=== PATIENT | male | born 1955 | race Two or more races ===

== ENCOUNTER 2025-02-12 11:07 | Inpatient (IN) | payer OTHER ==
[~2025-02-12] VITALS: Ht 172.7 cm; Wt 82.1 kg
[2025-02-12] VITALS (24 sets, daily range): BP systolic 88–155; BP diastolic 58–99; PULSE 67–132; RESP 16–39; TEMP 98–98.6; O2SAT 90–99
--- NOTE | 2025-02-12 11:47 | DVH ---
EXAM: XY CHEST PORTABLE Indication: chest pain Technique: Single frontal view of the chest was obtained Comparison: XR CHEST 1 VIEW on DOS: 02/12/25, XR CHEST 1 VIEW on DOS: 09/05/24, XR CHEST 1 VIEW on DOS: 08/21/24, CTA CHEST on DOS: 07/10/21, XR CHEST 1 VIEW on DOS: 07/09/21 FINDINGS: Lines and Tubes: Cardiac pacemaker projects over left chest wall. Lungs: Pulmonary vascular congestion. Pleura: No effusion. No pneumothorax. Cardiomediastinal contours: Unremarkable Bones: No acute osseous abnormality. IMPRESSION: Pulmonary vascular congestion.
--- NOTE | 2025-02-12 11:51 | ED.PDOC ---
HPI Comments This is a 70 year old male ELIESER presenting to the ED with chief complaint of chest pain and elevated troponin. EMS reports patient is coming from [facility] due to having chest pain and elevated troponin. EMS relays patient's chest pain has since improved to a 1/10 after being given Plavix and Nitroglycerin in the hospital. Patient denies any SOB, headache, N/V, dizziness, or abdominal pain. Chief Complaint: Chest Pain Time Seen by MD: 11:09 Allergies: Coded Allergies: NO KNOWN ALLERGIES (Unverified , 02/12/25) Mode of Arrival: EMS Past Medical History PAST MEDICAL HISTORY: MO Surgical History: Pacemaker, PTCA Surgical History (Other): G-Tube Family History Family History: Reviewed,noncontributory to illness Social History Smoker: Non-Smoker Alcohol: Denies ETOH Use Drugs: Denies Drug Use Constitutional: denies: chills, diaphoresis, fatigue, fever, malaise, sweats, weakness, others EENTM: denies: blurred vision, double vision, ear bleeding, ear discharge, ear drainage, ear pain, ear ringing, eye pain, eye redness, hearing loss, mouth pain, mouth swelling, nasal discharge, nose bleeding, nose congestion, nose pain, photophobia, tearing, throat pain, throat swelling, voice changes, others Respiratory: denies: cough, hemoptysis, orthopnea, SOB at rest, shortness of breath, SOB with excertion, stridor, wheezing, others Cardiovascular: reports: chest pain; denies: dizzy spells, diaphoresis, Dyspnea on exertion, edema, irregular heart beat, left arm pain, lightheadedness, palpitations, PND, syncope, others Gastrointestinal: denies: abdomen distended, abdominal pain, blood streaked bowels, constipated, diarrhea, dysphagia, difficulty swallowing, hematemesis, melena, nausea, poor appetite, poor fluid intake, rectal bleeding, rectal pain, vomiting, others Genitourinary: denies: burning, dysuria, flank pain, frequency, hematuria, incontinence, penile discharge, penile sore, pain, testicle pain, testicle swelling, urgency, others Neurological: denies: dizziness, fainting, headache, left sided numbness, left sided weakness, numbness, paresthesia, pre-existing deficit, right sided numbness, right sided weakness, seizure, speech problems, tingling, tremors, we akness, others Musculoskeletal: denies: back pain, gout, joint pain, joint swelling, muscle pain, muscle stiffness, neck pain, others Integumetry: denies: bruises, change in color, change in hair/nails, dryness, laceration, lesions, lumps, rash, wounds, others Allergic/Immunocompromised: denies: Difficulty Healing, Frequent Infections, Hives, Itching, others Hematologic/Lymphatic: denies: anemia, blood clots, easy bleeding, easy bruising, swollen glands, others Endocrine: denies: excessive hunger, excessive sweating, excessive thirst, excessive urination, flushing, intolerance to cold, intolerance to heat, unexplained weight gain, unexplained weight loss, others Psychiatric: denies: anxiety, bipolar disorder, depression, hopeless, panic disorder, schizophrenia, sleepless, suicidal, others All Other Systems: Reviewed and Negative Physical Exam General Appearance: No Apparent Distress, Normal HEENT: Normal ENT Inspection, Pharynx Normal, TMs Normal Neck: Full Range of Motion, Non-Tender, Normal, Normal Inspection Respiratory: Chest Non-Tender, Lungs Clear, No Accessory Muscle Use, No Respiratory Distress, Normal Breath Sounds Cardiovascular: No Edema, No JVD, No Murmur, No Gallop, Normal Peripheral Pulses, Regular Rate/Rhythm Breast Exam: Deferred Gastrointestinal: No Organomegaly, Non Tender, No Pulsatile Mass, Normal Bowel Sounds, Soft, Other (G-Tube in place) Genitalia: Deferred Pelvic: Deferred Rectal: Deferred Extremities: No calf tenderness, Normal capillary refill, Normal inspection, Normal range of motion, Non-tender, No pedal edema Musculoskeletal : Apperance: Normal Neurologic: Alert, faculty head II-XII nml as Tested, No Motor Deficits, Normal Affect, Normal Mood, No Sensory Deficits Cerebellar Function: Normal Reflexes: Normal Skin: Dry, Normal Color, Warm Lymphatic: No Adenopathy Was a procedure done? Was a procedure done?: No CP Differential Dx Differential Diagnosis: MAT, MO Differential Diagnosis: CHF, HTN Essential, HTN Accelerated Differential Diagnosis: Cholelithiasis, Gastritis, Myocardial Infarction, Pericarditis, Pneumonia X-Ray, Labs, Meds, VS Vital Signs Date Time Temp Pulse Resp B/P (MAP) Pulse Ox O2 Delivery O2 Flow Rate FiO2 02/12/25 15:14 19 100 Nasal Cannula* 2 28 02/12/25 15:00 87 19 109/64 (79) 100 02/12/25 13:00 85 17 107/58 (74) 97 02/12/25 12:07 94 02/12/25 11:30 92 29 115/65 (82) 97 02/12/25 11:30 67 17 99 Room Air* 0 21 02/12/25 11:10 98.0 102 20 108/64 95 98.0 Lab Test 02/12/25 13:10 02/12/25 11:35 Range/Units Troponin I High Sensitivity 3074 *H 716 *H </=54 ng/L White Blood Count 10.4 4.4-10.8 10^3/uL Red Blood Count 4.06 L 4.5-5.90 10^6/uL Hemoglobin 12.2 L 13.5-17.5 g/dL Hematocrit 37.6 L 41.0-53.0 % Mean Corpuscular Volume 92.6 80.0-100.0 fL Mean Corpuscular Hemoglobin 29.9 28.0-32.0 pg Mean Corpuscular Hemoglobin Concent 32.3 32.0-36.0 g/dL Red Cell Distribution Width 16.6 H 11.8-14.3 % Platelet Count 449 140-450 10^3/uL Mean Platelet Volume 7.1 6.9-10.8 fL Neutrophils (%) (Auto) 84.8 H 37.0-80.0 % Lymphocytes (%) (Auto) 8.1 L 10.0-50.0 % Monocytes (%) (Auto) 5.9 0.0-12.0 % Eosinophils (%) (Auto) 0.5 0.0-7.0 % Basophils (%) (Auto) 0.7 0.0-2.0 % Neutrophils # (Auto) 8.8 H 1.6-8.6 10 ^3/uL Lymphocytes # (Auto) 0.8 0.4-5.4 10 ^3/uL Monocytes # (Auto) 0.6 0-1.3 10 ^3/uL Eosinophils # (Auto) 0 0-0.8 10 ^3/uL Basophils # (Auto) 0.1 0-0.2 10 ^3/uL Nucleated Red Blood Cells 0.1 % Sodium Level 141 136-145 mmol/L Potassium Level 3.8 3.5-5.1 mmol/L Chloride Level 109 H 98-107 mmol/L Carbon Dioxide Level 17 L 20-31 mmol/L Anion Gap 15 5-15 Blood Urea Nitrogen 10 9-23 mg/dL Creatinine 0.99 0.700-1.30 mg/dL Glomerular Filtration Rate Calc 81 >90 mL/min BUN/Creatinine Ratio 10.1 10.0-20.0 Serum Glucose 212 H 74-106 mg/dL Calcium Level 8.5 L 8.7-10.4 mg/dL Time of 1ST Reevaluation: 12:50 Reevaluation 1ST: Unchanged Patient Education/Counseling: Diagnosis, Treatment Family Education/Counseling: No Family Present SEPSIS Sepsis Screen Date sepsis recognized/suspect: Feb 12, 2025 Time Sepsis recognized/suspect: 1113 Recent Procedure: No On Antibiotic Therapy: No Respiratory Rate >20: No Heart Rate >90: Yes Temp<36 C (96.8 F) or >38.3 C: No SBP <90 or MAP <65 mmHG: No New Acute Mental Status Change: No Is the patient on CPAP, BIPAP,: No Physician Orders Chest Portable (02/12/25 11:14) Electrocardigram (02/12/25 11:14) Troponin-I Hs (02/12/25 14:14) Electrocardigram (02/12/25 12:14) Electrocardigram (02/12/25 14:14) Vital Signs Date Time Temp Pulse Resp B/P (MAP) Pulse Ox O2 Delivery O2 Flow Rate FiO2 02/12/25 15:14 19 100 Nasal Cannula* 2 28 02/12/25 15:00 87 19 109/64 (79) 100 02/12/25 13:00 85 17 107/58 (74) 97 02/12/25 12:07 94 02/12/25 11:30 92 29 115/65 (82) 97 02/12/25 11:30 67 17 99 Room Air* 0 21 02/12/25 11:10 98.0 102 20 108/64 95 98.0 Laboratory Tests Test 02/12/25 11:35 White Blood Count 10.4 10^3/uL (4.4-10.8) Departure 1 Departure Time of Disposition: 15:37 (Patient presented with chest pain that was concerning for possible STEMI, ACS, PE, Pneumonia, Muscle Strain, COPD, Dissection. Data: 1. I ordered and reviewed the result of at least 3 labs including a CBC, BMP, and Troponin. 2. I independently interpreted the following tests: EKG which shows sinus arrhythmia and Chest X-ray which shows benign chest _.Risk:This patient has a high risk of morbidity due to further diagnostic testing or treatment and may suffer from an acute cardiac or respiratory disorder. Workup reveals NSTEMI and patient should be admitted for further workup and possible expert consultation. ) Impression: Primary Impression: NSTEMI (non-ST elevated myocardial infarction) Additional Impression: Acute chest pain Disposition: ADMITTED INPATIENT Admit to: Tele Condition: Guarded Critical Care Note Critical Care Time?: Yes Critical care comment: Acute chest pain Authorized and Performed by: Patty Petersen MD Total critical care time: Approximately 39 minutes Due to a high probability of clinically significant, life threatening deterioration, the patient required my highest level of preparedness to intervene emergently and I personally spent this critical care time directly and personally managing the patient. This critical care time included obtaining a history; examining the patient; pulse oximetry; ordering and review of studies; arranging urgent treatment with development of a management plan; evaluation of patient's response to treatment; frequent reassessment; and, discussions with other providers. This critical care time was performed to assess and manage the high probability of imminent, life-threatening deterioration that could result in multi-organ failure. It was exclusive of separately billable procedures and treating other patients and teaching time. Please see my other sections and the rest of the note for further information on patient assessment and treatment. Stability Stability form required: No Heart Score Heart Score: Heart Score Response (Comments) Value History Highly Suspicious 2 EKG Normal 0 Age >65 2 Risk Factors >3 or Hx ASHD 2 Troponin >3 x's Normal limit 2 Total 8 I personally scribed for PATTY PETERSEN MD ([email or web address]) on 02/12/25 at 11:51. Electronically submitted by Roshan Woodward ([email or web address]). PATTY PETERSEN MD Feb 12, 2025 11:51
[2025-02-12 12:13] LABS: Hematocrit 37.6 % (41.0-53.0); Hemoglobin 12.2 g/dL (13.5-17.5); Mean Corpuscular Hemoglobin 29.9 pg (28.0-32.0); Mean Corpuscular Volume 92.6 fL (80.0-100.0); Nucleated Red Blood Cells % 0.1 %
[2025-02-12 12:19] LABS: Anion Gap 15 (5-15); Potassium 3.8 mmol/L (3.5-5.1); Sodium 141 mmol/L (136-145)
[2025-02-12 12:20] LABS: Carbon Dioxide 17 mmol/L (20-31); Chloride 109 mmol/L (98-107)
[2025-02-12 12:21] LABS: Calcium 8.5 mg/dL (8.7-10.4)
[2025-02-12 12:25] LABS: BUN/Creatinine Ratio 10.1 (10.0-20.0); Blood Urea Nitrogen 10 mg/dL (9-23)
[2025-02-12 12:29] LABS: Glucose 212 mg/dL (74-106)
[2025-02-12] MEDS ORDERED: NITROGLYCERIN 0.4 MG SL TAB SL PRN (16:15)
[2025-02-12] MEDS ORDERED: DEXTROSE (50%) 50ML SYRG IV PRN (16:30)
[2025-02-12] MEDS ORDERED: MORPHINE SULFATE 4 MG/ML SYR/VIAL IV PRN (16:30)
[2025-02-12] MEDS ORDERED: ONDANSETRON HCL 4 MG/2 ML VIAL IV PRN (16:30)
[2025-02-12 16:38] LABS: INR 1.0 (0.9-1.15); Partial Thromboplastin Time 25.7 SEC (24.5-34.5); Prothrombin Time 10.6 sec (9.3-11.8)
[2025-02-12] MEDS: HEPARIN SODIUM (PORCINE) 5000 UNITS/ML 1ML VIAL IV ONE (16:50)
[2025-02-12] MEDS: HEPARIN DRIP/D5W 100UNITS/ML 250 ML IV SCH (16:55)
[2025-02-12] MEDS: InsuLIN REG 1unit/0.01ml Soln (100units/ml) SC SCH (17:00)
[2025-02-12] MEDS: ACCU-CHEK COMFORT CURVE STRIP VI SCH (17:26)
[2025-02-12] MEDS: HEPARIN IN NS 1000Units/500mL 1,500 ML ONE (17:33)
[2025-02-12] MEDS: IODIXANOL 320MG/ML 100ML BTL IV ONE (17:33)
[2025-02-12] MEDS: ANGIOMAX 250 MG VIAL IV ONE (17:35)
[2025-02-12] MEDS: VERAPAMIL 2.5MG/ML INJ 2ML VIAL IV ONE (17:35)
[2025-02-12] MEDS: MIDAZOLAM HCL 2MG/2ML 2ml VIAL (1mg/ml) ONE (17:35)
[2025-02-12] MEDS: LIDOCAINE 2%HCL (LOCAL ANESTH.) INJ 20ML MDV ONE (17:35)
[2025-02-12] MEDS: fentaNYL CITRATE 100 MCG/2 ML VL ONE (17:35)
[2025-02-12] MEDS: SODIUM CHL 0.9% 50 ML ONE (17:35)
[2025-02-12] MEDS: HEPARIN SODIUM (PORCINE) 5000 UNITS/ML 1ML VIAL ONE (17:35)
--- NOTE | 2025-02-12 18:02 | DVHHP2 ---
History of Present Illness Reason for Visit: Chest pain History of Present Illness 70-year-old male presents for evaluation of chest pain. Patient reports a one day history of substernal pressure-like nonradiating chest pain with associated shortness for breath. Patient initially presented to outside facility for evaluation and was transferred for higher level of care and cardiology consultation. Patient currently rates the pain at 5/10 intensity. Denies nausea or vomiting. No diaphoresis. Past Medical History Thyroid disease, hypertension, diabetes mellitus, mi Past Surgical History PTCA, pacemaker Family History Noncontributory Smoke: No ALCOHOL: none Drugs: None Lives: with Family Review of Systems Review of Systems Review of systems are currently negative otherwise addressed in HPI. Allergies: Coded Allergies: NO KNOWN ALLERGIES (Unverified , 02/12/25) Medications Current Medications Medications Dose Ordered Sig/Nelson Route Start Time Stop Time Status Last Admin Dose Admin Heparin Sodium/ Dextrose 250 ml @ 10 mls/hr Q24H IV 02/12/25 16:46 02/12/25 16:55 10 MLS/HR Nitroglycerin 0.4 mg Q5MINP PRN SL 02/12/25 16:15 Morphine Sulfate 2 mg Q30M PRN IV 02/12/25 16:30 Carvedilol 3.125 mg Q12HR PO 02/12/25 22:00 Atorvastatin Calcium 40 mg HS PO 02/12/25 22:00 Clopidogrel Bisulfate 75 mg DAILY PO 02/13/25 10:00 Levothyroxine Sodium 25 mcg QAM@0600 PO 02/13/25 06:00 Diagnostic Test (Pha) 1 strip ACHS 02/12/25 17:00 02/12/25 17:26 1 STRIP Insulin Human Regular ACHS SC 02/12/25 17:00 Dextrose 50 ml UD PRN IV 02/12/25 16:30 Ondansetron HCl 4 mg Q4HP PRN IV 02/12/25 16:30 Exam Vital Signs Vital Signs Date Time Temp Pulse Resp B/P (MAP) Pulse Ox O2 Delivery O2 Flow Rate FiO2 02/12/25 17:47 89 19 99/58 (72) 98 02/12/25 15:14 Nasal Cannula* 2 28 02/12/25 11:10 98.0 98.0 Exam Gen: 70-year-old male in mild distress. Skin: Warm, dry, normal color and texture, no rash. HEENT: Normocephalic atraumatic, mucous membranes moist and pink. Neck: Cervical and supraclavicular nodes normal without enlargement, trachea is midline, thyroid gland is normal without masses. Pulmonary: Clear to auscultation and percussion bilaterally. Cardiac: Regular rate and rhythm. No murmur Abdomen: Soft, nontender, nondistended, bowel sounds present all 4 quadrants, no guarding, no rigidity, no organomegaly. Extremities: No cyanosis, clubbing, no edema Neuro: Cranial nerves II through XII grossly intact, normal affect and speech, no focal motor deficits. Labs/Xrays ORDERING PHYSICIAN: PATTY MACK MD PROCEDURE(s): CXRP - CHEST PORTABLE REASON: chest pain ORDER NUMBER(s): [id number], ACCESSION NUMBER(s): [id number] EXAM: XY CHEST PORTABLE Indication: chest pain Technique: Single frontal view of the chest was obtained Comparison: XR CHEST 1 VIEW on DOS: 02/12/25, XR CHEST 1 VIEW on DOS: 09/05/24, XR CHEST 1 VIEW on DOS: 08/21/24, CTA CHEST on DOS: 07/10/21, XR CHEST 1 VIEW on DOS: 07/09/21 FINDINGS: Lines and Tubes: Cardiac pacemaker projects over left chest wall. Lungs: Pulmonary vascular congestion. Pleura: No effusion. No pneumothorax. Cardiomediastinal contours: Unremarkable Bones: No acute osseous abnormality. IMPRESSION: Pulmonary vascular congestion. Labs Test 02/12/25 17:24 02/12/25 16:14 02/12/25 11:35 Range/Units POC Glucose 229 H 70-106 mg/dl Prothrombin Time 10.6 9.3-11.8 sec Prothrombin Time INR 1.00 0.9-1.15 Activated Partial Thromboplast Time 25.7 24.5-34.5 SEC Troponin I High Sensitivity 9394 *H </=54 ng/L White Blood Count 10.4 4.4-10.8 10^3/uL Red Blood Count 4.06 L 4.5-5.90 10^6/uL Hemoglobin 12.2 L 13.5-17.5 g/dL Hematocrit 37.6 L 41.0-53.0 % Mean Corpuscular Volume 92.6 80.0-100.0 fL Mean Corpuscular Hemoglobin 29.9 28.0-32.0 pg Mean Corpuscular Hemoglobin Concent 32.3 32.0-36.0 g/dL Red Cell Distribution Width 16.6 H 11.8-14.3 % Platelet Count 449 140-450 10^3/uL Mean Platelet Volume 7.1 6.9-10.8 fL Neutrophils (%) (Auto) 84.8 H 37.0-80.0 % Lymphocytes (%) (Auto) 8.1 L 10.0-50.0 % Monocytes (%) (Auto) 5.9 0.0-12.0 % Eosinophils (%) (Auto) 0.5 0.0-7.0 % Basophils (%) (Auto) 0.7 0.0-2.0 % Neutrophils # (Auto) 8.8 H 1.6-8.6 10 ^3/uL Lymphocytes # (Auto) 0.8 0.4-5.4 10 ^3/uL Monocytes # (Auto) 0.6 0-1.3 10 ^3/uL Eosinophils # (Auto) 0 0-0.8 10 ^3/uL Basophils # (Auto) 0.1 0-0.2 10 ^3/uL Nucleated Red Blood Cells 0.1 % Sodium Level 141 136-145 mmol/L Potassium Level 3.8 3.5-5.1 mmol/L Chloride Level 109 H 98-107 mmol/L Carbon Dioxide Level 17 L 20-31 mmol/L Anion Gap 15 5-15 Blood Urea Nitrogen 10 9-23 mg/dL Creatinine 0.99 0.700-1.30 mg/dL Glomerular Filtration Rate Calc 81 >90 mL/min BUN/Creatinine Ratio 10.1 10.0-20.0 Serum Glucose 212 H 74-106 mg/dL Calcium Level 8.5 L 8.7-10.4 mg/dL SEPSIS Sepsis Screen Date sepsis recognized/suspect: Feb 12, 2025 Time Sepsis recognized/suspect: 1129 Recent Procedure: No On Antibiotic Therapy: No Respiratory Rate >20: No Heart Rate >90: No Temp<36 C (96.8 F) or >38.3 C: No SBP <90 or MAP <65 mmHG: No New Acute Mental Status Change: No Is the patient on CPAP, BIPAP,: No Physician Orders Chest Portable (02/12/25 11:14) Electrocardigram (02/12/25 11:14) Electrocardigram (02/12/25 12:14) Electrocardigram (02/12/25 14:14) * Cardiology Consult (02/12/25 15:38) Platelet Monitoring (02/12/25 15:38) Heparin Per Standardized Proce (02/12/25 15:38) Discontinue All Im Injections (02/12/25 15:38) Heparin Drip/D5w 100units/Ml (02/12/25 16:46) Stat Ekg For Chest Pain (02/12/25 15:38) Admit (02/12/25 16:12) Nitroglycerin Sublingual (Ntrostat Subli (02/12/25 16:15) Notify Md Of Changes From Base (02/12/25 16:12) Microarray Specialist For 24 Hours (02/12/25 16:12) Emergency Dysrhythmia Protocol (02/12/25 16:12) Rhythm Strips Once Every Shift (02/12/25 16:12) Oxygen By Nasal Cannula (02/12/25 16:12) Morphine Sulfate Injection (02/12/25 16:30) Carvedilol Tablet (Coreg Tablet) (02/12/25 22:00) Atorvastatin (Lipitor) (02/12/25 22:00) Clopidogrel Bisulfate (Plavix) (02/13/25 10:00) Levothyroxine Tablet (Synthroid Tablet) (02/13/25 06:00) Basic Metabolic Panel (02/13/25 04:00) Npo After Midnight (02/12/25 16:16) Glucose Blood (Accu-Chek Comfort Curve T (02/12/25 17:00) Insulin R (Human) (Insulin R) (02/12/25 17:00) Dextrose 50% Syringe (02/12/25 16:30) Ondansetron Hcl (Zofran) (02/12/25 16:30) Condition: Fair (02/12/25 16:16) Bedrest With Bathroom Privileg (02/12/25 16:16) Npo (Nothing By Mouth) Diet (02/12/25 Dinner) Cl Left Heart Cath (02/12/25 17:26) Obtain Consent For: (02/12/25 17:45) Shave Both Groins (02/12/25 17:45) Provide Education Materials (02/12/25 17:45) Obtain Consent For Anesthesia (02/12/25 17:45) Thyroid Stimulating Hormone (02/12/25 17:50) Lipid Panel (02/12/25 17:50) Hemoglobin A1c (02/12/25 17:50) Magnesium (02/12/25 17:50) Vital Signs Date Time Temp Pulse Resp B/P (MAP) Pulse Ox O2 Delivery O2 Flow Rate FiO2 02/12/25 17:47 89 19 99/58 (72) 98 02/12/25 15:14 19 100 Nasal Cannula* 2 28 02/12/25 15:00 87 19 109/64 (79) 100 02/12/25 13:00 85 17 107/58 (74) 97 02/12/25 12:07 94 02/12/25 11:30 92 29 115/65 (82) 97 02/12/25 11:30 67 17 99 Room Air* 0 21 02/12/25 11:10 98.0 102 20 108/64 95 98.0 Laboratory Tests Test 02/12/25 11:35 White Blood Count 10.4 10^3/uL (4.4-10.8) Medications Medications Dose Ordered Sig/Nelson Route Start Time Stop Time Status Last Admin Dose Admin Diagnostic Test (Pha) 1 strip ACHS 02/12/25 17:00 02/12/25 17:26 1 STRIP Heparin Sodium (Porcine) 4,000 units ONCE ONCE IV 02/12/25 15:45 02/12/25 15:46 DC 02/12/25 16:50 4,000 UNITS Heparin Sodium/ Dextrose 250 ml @ 10 mls/hr Q24H IV 02/12/25 16:46 02/12/25 16:55 10 MLS/HR Assessment/Plan Assessment/Plan Assessment NSTEMI Diabetes mellitus Hypertension Status post pacemaker Status post PTCA Plan Admit the patient to telemetry to the hospitalist Continue heparin drip ACS protocol NPO Continue treatment per orders Plan discussed with: Patient My Orders Orders - MASOUD CABRERA Procedure Category Date Status Time Admit ADMIT 02/12/25 Transmitted 16:12 Nitroglycerin PHA 02/12/25 In Process Sublingual (Ntrostat 16:15 Notify Md Of Changes [facility] 02/12/25 In Process From Base 16:12 Microarray Specialist For [facility] 02/12/25 In Process 24 Hours 16:12 Emergency Dysrhythmia [facility] 02/12/25 In Process Protocol 16:12 Rhythm Strips Once [facility] 02/12/25 In Process Every Shift 16:12 Oxygen By Nasal RT 02/12/25 Transmitted Cannula 16:12 Morphine Sulfate [facility] 02/12/25 In Process Injection 16:30 Carvedilol Tablet [facility] 02/12/25 In Process (Coreg Tablet) 22:00 Atorvastatin (Lipitor) [facility] 02/12/25 In Process 22:00 Clopidogrel Bisulfate [facility] 02/13/25 In Process (Plavix) 10:00 Levothyroxine Tablet [facility] 02/13/25 In Process (Synthroid Tablet) 06:00 Basic Metabolic Panel LAB 02/13/25 Verified 04:00 Npo After Midnight [facility] 02/12/25 In Process 16:16 Glucose Blood [facility] 02/12/25 In Process (Accu-Chek Comfort 17:00 Insulin R (Human) [facility] 02/12/25 In Process (Insulin R) 17:00 Dextrose 50% Syringe [facility] 02/12/25 In Process 16:30 Ondansetron Hcl [facility] 02/12/25 In Process (Zofran) 16:30 Condition: Fair [facility] 02/12/25 In Process 16:16 Bedrest With Bathroom [facility] 02/12/25 In Process Privileg 16:16 Npo (Nothing By DIET 02/12/25 Transmitted Mouth) Diet Dinner Date of Service: Feb 12, 2025 Billing Provider: MASOUD CABRERA Common Visit Codes: [id number] INP/OBS CARE (HIGH) MASOUD CABRERA Feb 12, 2025 18:02
--- NOTE | 2025-02-12 18:03 | DVHINCON2 ---
Date Seen: Feb 12, 2025 Referring Physician MD Trinity Reason for Consultation NSTEMI History of Present Illness This is a 70-year-old male patient who presents to emergency room with chief complaint of shortness of breath and chest pain. The patient was initially seen at [facility] but was transferred to this facility for higher level of care given elevated troponin level. The patient reports that the chest pain began on the day of emergency room arrival. He describes the chest pain as unprovoked, constant, pressure-like in nature, substernal and nonradiating. Associated symptoms include shortness of breath. He denies any aggravating or alleviating factors. Initial twelve lead electrocardiogram done at this facility reveals sinus tachycardia with nonspecific ST segment changes to lateral leads and anterior Q-waves. Initial troponin level of 716ng/L with significant up trend and current peak level of 9394ng/L. The patient had already been given loading dose of aspirin at [facility]. The patient was given a heparin bolus followed by heparin drip per ACS protocol in the emergency room at this facility. Significant past medical history includes coronary artery disease status post multiple PTCAs with 5 FANY (on Plavix and aspirin), myocardial infarction, congestive heart failure, presence of AICD (Regen), hypertension, dyslipidemia, COPD, type 2 diabetes mellitus, thyroid disease, tobacco use and morbid obesity. The patient is not the greatest historian. He mentions recent coronary angiogram with stent placement approximately three weeks ago at [facility]. He reports compliance to his dual antiplatelet therapy. He denies following up with a structural engineering project manager in the outpatient setting. Past Medical History Past medical history reviewed. No other significant than mentioned above. Past Surgical History Left peg tube in place Left knee tendon repair Family History Family history reviewed. Social History Patient has a 25 pack-year history, smokes approximately half a pack per day Denies illicit drug use Denies alcohol use Allergies: Coded Allergies: NO KNOWN ALLERGIES (Unverified , 02/12/25) Home Meds Home medications reviewed. Current Medications Current Medications Medications (Trade) Dose Ordered Sig/Nelson Route PRN Reason Start Time Stop Time Status Last Admin Heparin Sodium/ Dextrose 250 ml @ 10 mls/hr Q24H IV 02/12/25 16:46 02/12/25 16:55 Nitroglycerin (Ntrostat Sublingual) 0.4 mg Q5MINP PRN SL FOR CHEST PAIN 10/9/25 16:15 Morphine Sulfate 2 mg Q30M PRN IV FOR CHEST PAIN 02/12/25 16:30 Carvedilol (Coreg Tablet) 3.125 mg Q12HR PO 02/12/25 22:00 Atorvastatin Calcium (Lipitor) 40 mg HS PO 02/12/25 22:00 Clopidogrel Bisulfate (Plavix) 75 mg DAILY PO 02/13/25 10:00 Levothyroxine Sodium (Synthroid Tablet) 25 mcg QAM@0600 PO 02/13/25 06:00 Diagnostic Test (Pha) (Accu-Chek Comfort Curve T) 1 strip ACHS 02/12/25 17:00 02/12/25 17:26 Insulin Human Regular (InsuLIN R) ACHS SC 02/12/25 17:00 Dextrose 50 ml UD PRN IV Blood Sugar LESS THAN 60 02/12/25 16:30 Ondansetron HCl (Zofran) 4 mg Q4HP PRN IV NAUSEA / VOMITING 02/12/25 16:30 Review of Systems Constitutional: No symptom reported Ears, Nose, & Throat: No symptom reported Eyes: No symptom reported Neurological: No symptoms reported Pulmonary/Respiratory: Shortness of breath Cardiovascular: Chest pain Gastrointestinal: No symptom reported Genitourinary: No symptom reported Musculoskeletal: No symptom reported Skin: No symptom reported Psychiatric: No symptom reported Endocrine: No symptom reported Hematologic/Lymphatic: No symptom reported Vital Signs Vital Signs Date Time Temp Pulse Resp B/P (MAP) Pulse Ox O2 Delivery O2 Flow Rate FiO2 02/12/25 15:14 19 100 Nasal Cannula* 2 28 02/12/25 15:00 87 109/64 (79) 02/12/25 11:10 98.0 98.0 Physical Exam General Appearance: Cooperative. Morbid obesity Pulmonary/Respiratory: Clear, bilateral breaths sounds. Cardiovascular/Chest: Regular rate and rhythm. Peripheral Pulses: 2+ Radial (R). 2+ Radial (L). 2+ Pedal (R). 2+ Pedal (L) Abdominal Exam: Normal bowel sounds. Left upper quadrant PEG tube in place Ankle Exam: Negative ankle edema Lower extremities: Negative lower extremity edema Neuro/Mental Status: A/OX4, coherent. Thoughts/Psych: Normal thought pattern. Appropriate mood and affect. Good judgment and insight. Appearance: No acute distress. Skin Exam: Normal inspection. Normal color. Warm and dry. Labs/Diagnostic Data Labs Test 02/12/25 17:24 02/12/25 16:14 02/12/25 11:35 Range/Units POC Glucose 229 H 70-106 mg/dl Prothrombin Time 10.6 9.3-11.8 sec Prothrombin Time INR 1.00 0.9-1.15 Activated Partial Thromboplast Time 25.7 24.5-34.5 SEC Troponin I High Sensitivity 9394 *H </=54 ng/L White Blood Count 10.4 4.4-10.8 10^3/uL Red Blood Count 4.06 L 4.5-5.90 10^6/uL Hemoglobin 12.2 L 13.5-17.5 g/dL Hematocrit 37.6 L 41.0-53.0 % Mean Corpuscular Volume 92.6 80.0-100.0 fL Mean Corpuscular Hemoglobin 29.9 28.0-32.0 pg Mean Corpuscular Hemoglobin Concent 32.3 32.0-36.0 g/dL Red Cell Distribution Width 16.6 H 11.8-14.3 % Platelet Count 449 140-450 10^3/uL Mean Platelet Volume 7.1 6.9-10.8 fL Neutrophils (%) (Auto) 84.8 H 37.0-80.0 % Lymphocytes (%) (Auto) 8.1 L 10.0-50.0 % Monocytes (%) (Auto) 5.9 0.0-12.0 % Eosinophils (%) (Auto) 0.5 0.0-7.0 % Basophils (%) (Auto) 0.7 0.0-2.0 % Neutrophils # (Auto) 8.8 H 1.6-8.6 10 ^3/uL Lymphocytes # (Auto) 0.8 0.4-5.4 10 ^3/uL Monocytes # (Auto) 0.6 0-1.3 10 ^3/uL Eosinophils # (Auto) 0 0-0.8 10 ^3/uL Basophils # (Auto) 0.1 0-0.2 10 ^3/uL Nucleated Red Blood Cells 0.1 % Sodium Level 141 136-145 mmol/L Potassium Level 3.8 3.5-5.1 mmol/L Chloride Level 109 H 98-107 mmol/L Carbon Dioxide Level 17 L 20-31 mmol/L Anion Gap 15 5-15 Blood Urea Nitrogen 10 9-23 mg/dL Creatinine 0.99 0.700-1.30 mg/dL Glomerular Filtration Rate Calc 81 >90 mL/min BUN/Creatinine Ratio 10.1 10.0-20.0 Serum Glucose 212 H 74-106 mg/dL Calcium Level 8.5 L 8.7-10.4 mg/dL Assessment NSTEMI, rule out InStent restenosis/thrombosis Coronary artery disease status post multiple PTCAs x5 FANY (on Plavix and aspirin) Chronic HFrEF, NYHA class III Presence of AICD (Regen) History myocardial infarction Hypertension Dyslipidemia COPD Type 2 diabetes mellitus Thyroid disease Tobacco use Morbid obesity Plan/Recommendation We will continue following plan/recommendations (Dr. Fleming): Case discussed with . We will proceed with obtaining a transthoracic echocardiogram to evaluate cardiac function. Given patient's clinical presentation, significant up-trending troponin level, and recent coronary stent placement, we will recommend for the patient to undergo a coronary angiogram with left heart catheterization. The procedure was discussed with the patient in full detail including risks and benefits. Risks include but are not limited to bleeding, contrast-induced nephropathy, coronary dissection, stroke, and even . The patient understands and is agreeable to undergo the procedure. We will schedule the patient at soonest availability on 02/12/2025. Thank you for allowing us to care for this patient. Please call with any questions or concerns. Critical care time spent: 44 minutes This medical document was created using an electronic medical record system with voice recognition software and computerized dictation system. Although this document has been carefully reviewed, there might still be some phonetic and typographical errors. Occasional wrong-word or ``sound-alike substitutions may have occurred due to the inherent limitations of voice recognition software. These areas are purely typographical due to imperfections of the software programs and do not reflect any compromise in the patient's medical care. Ple ase read the chart carefully and recognize, using context, where these substitutions have occurred. Plan discussed with: Patient NYHA Physical activity limitations: Class3(Marked) ordinary (activity causes symtoms) Date of Service: Feb 12, 2025 Billing Provider: EMILY EASTMAN Cardiology Common Codes: 21339-TOMHFAN INP/OBS CARE (High) Cardiology Consultation Codes: 28361-[id number] CONSULT <45MIN EMILY EASTMAN [facility] Feb 12, 2025 18:03
[2025-02-12 18:35] LABS: Triglycerides 136.0 mg/dL (< 150)
[2025-02-12 18:36] LABS: Magnesium 2.2 mg/dL (1.6-2.6)
[2025-02-12 18:37] LABS: Cholesterol 181.0 mg/dL (< 200); HDL Cholesterol 47.0 mg/dL (40-59)
[2025-02-12] MEDS: TICAGRELOR 90 MG TAB ONE (19:07)
--- NOTE | 2025-02-12 19:12 | ECG ---
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
--- NOTE | 2025-02-12 19:12 | ECG ---
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
--- NOTE | 2025-02-12 19:13 | ECG ---
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
--- NOTE | 2025-02-12 19:24 | DVHOP2 ---
Operative Report - 2 Report Details Date: 02/12/25 Preop Diagnosis: CAD/acute coronary syndrome Postop Diagnosis: Acute coronary syndrome Surgeon: Jessica Fleming MD Anesthesiologist: Conscious sedation Anesthesia: Mac, Local Consent: The patient was informed of the risks and benefits of the procedure. These include but are not limited to complications of anesthesia, postoperative infection, incomplete relief of symptoms, recurrence of symptoms, damage to blood vessels, nerves and tendons, deep venous thrombosis, pulmonary embolism and possible need for repeat surgery in the future. Complications: No complications Findings: Circumflex occlusion. Lad occlusion. Thrombus in mid RCA Indications for Surgery: Acute coronary syndrome/chest pain Name of Procedure Performed Left heart catheterization bilateral cine coronary angiography. Left ventriculography. PTCA and attempted aperture recently occluded circumflex was unsuccessful Procedure Details Procedure Details: Under the pretense of performing a salvage procedure for patient, Prior local anesthesia with 2% lidocaine to the right groin and full informed consent obtained patient was prepped and draped in the usual fashion a six Bulgarian sheath placed into the femoral artery. The radial artery was initially attempted however an ultrasound revealed a complete occlusion of the right radial artery. Patency of the ulnar artery. A three five EBU was used to perform ventriculography and cannulation of both r ight and left coronary ostia without complications. Hemodynamics: Aortic blood pressure was 90/50. End-diastolic pressure was 20. No gradient across the valve on pullback. Coronary anatomy: The RCA is a large vessel. It has a filling defect at its medial aspect in the midportion. There was slight contrast hang up. There is AIDAN grade 2-3 flow to the distal posterolateral branches PDA. There was a lesion in the posterolateral branch of about 70-80% stenosis. PDA has a 60-70% stenosis of the ostium. No collateralization is noted to the distal circumflex or left coronary system. Left main is a medium vessel it is large and it has been stented. The left anterior descending is occluded proximally. The circumflex itself has a been stented throughout its entirety. It is occluded at its mid section. Ventriculography in the RUEDA projection shows anterior akinesis. EF of about 10%. Notably enlarged LV. Angioplasty was attempted. Via the three five EBU a Specter wire was used followed by a Fielder wire in an effort to attempt crossing through the occlusion of the distal and mid circumflex. After several attempts and placing a 2-0 balloon into the mid circumflex were unable to pass a wire and/or balloon. The procedure was terminated. No complications. An Angio-Seal device was used to close the artery. Impression: Occluded LAD. Occluded circumflex. Filling defect in mid RCA. Severe dilated ischemic cardiomyopathy. Elevated left ventricular end-diastolic pressures Recommendations: It is extremely high-risk to consider angioplasty on the RCA without hemodynamic support/Impella. Poor overall prognosis. Propensity for thrombosis within the RCA is high given patient is still smoking and acute coronary syndrome in place. We will continue with anticoagulation. Poor overall prognosis. We will discuss with patient and family. Condition Poor Disposition Still a Patient Date of Service: Feb 12, 2025 Billing Provider: JESSICA FLEMING Sr., MD Cardiology Common Codes: 58747-[id number] INP/OBS CARE (High) Cardiology Procedure Codes: 70793-SAAD ADD CORONARY BRANCH (PTCA and thrombectomy of circumflex.), 92655-HWVU HEART CATH W/INTRA INJ JESSICA FLEMING Sr., MD Feb 12, 2025 19:24
[2025-02-12] MEDS ORDERED: ENOXAPARIN SOD 100 MG/1 ML SYRINGE SC ONE (21:22)
[2025-02-12] MEDS: ALBUTEROL SULF 2.5 MG/0.5ML(0.5%) NEB SOLN NEB PRN (21:50)
[2025-02-12] MEDS: ALBUTEROL SULF 2.5 MG/0.5ML(0.5%) NEB SOLN ONE (21:54)
[2025-02-12] MEDS: CARVEDILOL 3.125 MG TAB PO SCH (22:00)
[2025-02-12] MEDS ORDERED: ZOLPIDEM TARTRATE 5 MG TAB PO PRN (22:15)
[2025-02-12] MEDS: ZOLPIDEM TARTRATE 5 MG TAB PO PRN (22:22)
[2025-02-12] MEDS: FUROSEMIDE 40 MG/4 ML VIAL IV ONE (22:22)
[2025-02-12] MEDS: ATORVASTATIN 20 MG TAB PO SCH (22:59)
[2025-02-13] VITALS (99 sets, daily range): BP systolic 83–125; BP diastolic 44–76; PULSE 78–107; RESP 12–28; TEMP 97.9–99; O2SAT 92–100
[2025-02-13 00:11] LABS: INR 1.03 (0.9-1.15); Partial Thromboplastin Time 21.7 SEC (24.5-34.5); Prothrombin Time 10.9 sec (9.3-11.8)
[2025-02-13 03:53] LABS: Hematocrit 41.7 % (41.0-53.0); Hemoglobin 13.3 g/dL (13.5-17.5); Mean Corpuscular Hemoglobin 29.8 pg (28.0-32.0); Mean Corpuscular Volume 93.5 fL (80.0-100.0); Nucleated Red Blood Cells % 0.1 %
[2025-02-13 03:59] LABS: Potassium 3.8 mmol/L (3.5-5.1); Sodium 142 mmol/L (136-145)
[2025-02-13 04:00] LABS: Anion Gap 14 (5-15); Calcium 8.9 mg/dL (8.7-10.4); Carbon Dioxide 21 mmol/L (20-31)
[2025-02-13 04:05] LABS: BUN/Creatinine Ratio 9.1 (10.0-20.0); Blood Urea Nitrogen 10 mg/dL (9-23)
[2025-02-13 04:24] LABS: Chloride 107 mmol/L (98-107); Glucose 241 mg/dL (74-106)
[2025-02-13] MEDS: LEVOTHYROXINE SODIUM 25 MCG TAB PO SCH (05:47)
[2025-02-13 09:11] LABS: Hemoglobin 12.5 g/dL (13.5-17.5); Nucleated Red Blood Cells % 0.0 %
[2025-02-13 09:13] LABS: Hematocrit 38.2 % (41.0-53.0); Mean Corpuscular Hemoglobin 29.6 pg (28.0-32.0); Mean Corpuscular Volume 90.6 fL (80.0-100.0)
[2025-02-13 09:29] LABS: INR 1.0 (0.9-1.15); Partial Thromboplastin Time 25.6 SEC (24.5-34.5); Prothrombin Time 10.6 sec (9.3-11.8)
[2025-02-13] MEDS ORDERED: CLOPIDOGREL BISULFATE 75 MG TAB PO SCH (10:00)
--- NOTE | 2025-02-13 11:55 | DVHPN2 ---
Consult Progress Note Subjective Other Systems: Patient in normal sinus rhythm at time of assessment Objective vital signs Vital Sign Date Time Temp Pulse Resp B/P (MAP) Pulse Ox O2 Delivery O2 Flow Rate FiO2 02/13/25 10:15 84 16 103/65 (78) 100 02/13/25 08:00 99.0 99.0 02/13/25 08:00 Simple Mask* 7 60 Total Intake and Output 02/12/25 02/12/25 02/13/25 15:00 23:00 07:00 Intake Total 240 ml Output Total 1400 ml Balance -1160 ml medications Current Medications Medications Dose Ordered Sig/Nelson Route Start Time Stop Time Status Last Admin Dose Admin Heparin Sodium/ Dextrose 250 ml @ 10 mls/hr Q24H IV 02/12/25 16:46 02/12/25 16:55 10 MLS/HR Nitroglycerin 0.4 mg Q5MINP PRN SL 02/12/25 16:15 Morphine Sulfate 2 mg Q30M PRN IV 02/12/25 16:30 Carvedilol 3.125 mg Q12HR PO 02/12/25 22:00 Atorvastatin Calcium 40 mg HS PO 02/12/25 22:00 02/12/25 22:59 40 MG Clopidogrel Bisulfate 75 mg DAILY PO 02/13/25 10:00 Levothyroxine Sodium 25 mcg QAM@0600 PO 02/13/25 06:00 02/13/25 05:47 25 MCG Diagnostic Test (Pha) 1 strip ACHS 02/12/25 17:00 02/13/25 11:41 1 STRIP Insulin Human Regular ACHS SC 02/12/25 17:00 02/13/25 06:40 3 UNITS Dextrose 50 ml UD PRN IV 02/12/25 16:30 Ondansetron HCl 4 mg Q4HP PRN IV 02/12/25 16:30 Enoxaparin Sodium 90 mg BID SC 02/13/25 10:00 Hold Albuterol 2.5 mg Q4HPRN PRN NEB 02/12/25 21:45 02/12/25 21:50 2.5 MG Zolpidem Tartrate 10 mg HSPRN PRN PO 02/12/25 22:15 02/12/25 22:22 10 MG Examination: GENERAL:Normal, LUNGS:Normal, CVS:Normal, NEURO:Normal laboratory and microbiology Laboratory Tests 02/13/25 08:56 02/13/25 02:56 Test 02/13/25 02:56 Range/Units Serum Glucose 241 H 74-106 mg/dL Problem List/Assessment/Plan Problem List/Assessment/Plan NSTEMI Mid RCA thrombus Coronary artery disease status post multiple PTCAs x5 FANY (on Plavix and aspirin) Chronic HFrEF, NYHA class III Presence of AICD ([employer]) History myocardial infarction Hypertension Dyslipidemia COPD Pulmonary hypertension, severe degree Type 2 diabetes mellitus Thyroid disease Tobacco use Morbid obesity Plan/Recommendations (Dr. Fleming): Case discussed with . The patient underwent a transthoracic echocardiogram which revealed an EF of 10%, RVSP 75-80 mmHg. Initiate full guideline directed medical therapy with optimal blood pressures. Strict intake and output, daily weights, maintain fluid restriction, maintain low-sodium diet. The patient underwent a coronary angiogram with left heart catheterization on 02/12/2025 which revealed an occluded LAD, an occluded circumflex and filling defects in the mid RCA with thrombus. Given this high risk to consider angioplasty on the RCA without hemodynamic support or Impella, the patient's overall prognosis is poor. Recommendations for single antiplatelet therapy (switched to Brilinta per ) and with DOAC therapy (Eliquis). The patient should also continue lipid-lowering agent (statin therapy). Initiate colchicine. Continue with close cardiac surveillance. Thank you for allowing us to care for this patient. Please call with any questions or concerns. Critical care time spent: 38 minutes. This medical document was created using an electronic medical record system with voice recognition software and computerized dictation system. Although this document has been carefully reviewed, there might still be some phonetic and typographical errors. Occasional wrong-word or ``sound-alike substitutions may have occurred due to the inherent limitations of voice recognition software. These areas are purely typographical due to imperfections of the software programs and do not reflect any compromise in the patient's medical care. Please read the chart carefully and recognize, using context, where these substitutions have occurred. Plan discussed with: Patient Date of Service: Feb 13, 2025 Billing Provider: EMILY EASTMAN Common Visit Codes: 39438-WPCFIGUZ CARE 30-74 MIN EMILY EASTMAN Feb 13, 2025 11:55
[2025-02-13] MEDS: TICAGRELOR 90 MG TAB PO ONE (13:56)
[2025-02-13] MEDS: hydrOXYzine 25 MG TAB or CAP PO ONE (15:26)
--- NOTE | 2025-02-13 17:14 | DVHSR ---
APPROVED REPORT EXAM: Two-dimensional and M-mode echocardiogram with Doppler and color Doppler. Blood Pressure: 109/64 mmHg INDICATION Chest Pain RISK FACTORS Height: 68, Weight: 200 DIMENSIONS LVDd7.2 (3.8-5.7cm)LA (2D) (1.9-4.0cm)Aortic Root3.3 (2.0-3.7cm) LVDs6.4 (2.5-4.0cm)LA (MM) (1.9-4.0cm)Aortic Cusp Exc1.1 (1.5-2.0cm) EF (%) 25.0 (55-70%)Rt. Atrium (1.9-4.0cm)Asc. Aorta cm Mitral Valve MitralMitral Stenosis E wave1.28m/sMV Mean GR.mmHg A wavem/sMV Peak GR.55mmHg E/A ratio0.02D MVAcm2 Aortic Valve Aortic ValveAortic Stenosis V10.48m/Tanika Mean GR.2mmHg V20.88m/Tanika Peak GR.3mmHg LVOT Diameter2.2 (1.8-2.4cm)Doppler AVA2.07cm2 Pulmonic Valve V20.82m/s Tricuspid Valve TR Velocity4.13m/s [id number] Other Information Technically limited study due to body habitus, patient position and patient moving during the entire study. Conclusion Technically good study. Undetermined rhythm. Left ventricular enlargement. Left atrial enlargement. Valves appear to be structurally normal. Left ventricular function is markedly diminished. EF is approximately 10% with severe global hypokin esis. Right ventricular function is diminished. Severe pulmonary hypertension with a right ventricular systolic pressure of 75-80 mmHg. Moderate MR. No pericardial effusion masses or vegetations.
--- NOTE | 2025-02-13 20:19 | DVHPN2 ---
Assessment/Plan Assessment/Plan progress note 70 M transferred from OSH for elevated troponin. 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 physical exam aox3, poor historian on oxymask b/l crackles s1 s2 rrr abdomen soft no LE edema labs ekg imaging reviewed assessment and plan NSTEMI CAD s/p FANY x5 on asa Plavix mid RCA thrombus HFrEF 10% acute on chronic systolic HF s/p AICD HTN HLD COPD group E acute on chronic hypoxic RF severe pHTN IDDM smoker morbid obesity cardio recc appreciated medical mgmt for CAD s/p LHC, occluded LAD, LCx and mid RCA thrombus Eliquis and brilinta steroid and nebs ISS resume home meds maintain spo2 >92 diet cardiac dvt ppx AC poor prognosis full code crit care time 45 minutes Plan discussed with: Patient My Orders Orders - SYDNEY BOYKIN MD Procedure Category Date Status Time Hydroxyzine Oral PHA 02/13/25 In Process (Vistaril Oral) 16:15 Comprehensive LAB 02/14/25 Verified Metabolic Panel 04:00 Magnesium LAB 02/14/25 Verified 04:00 Phosphorus LAB 02/14/25 Verified 04:00 Date of Service: Feb 13, 2025 Billing Provider: SYDNEY BOYKIN MD Common Visit Codes: 65775-[id number] CARE 30-74 MIN SYDNEY BOYKIN MD Feb 13, 2025 20:19
[2025-02-13] MEDS: TICAGRELOR 90 MG TAB PO SCH (23:18)
[2025-02-13] MEDS: ENOXAPARIN SOD 100 MG/1 ML SYRINGE SC SCH (23:22)
[2025-02-14] VITALS (67 sets, daily range): BP systolic 79–117; BP diastolic 46–72; PULSE 69–100; RESP 10–26; TEMP 97.5–98.3; O2SAT 84–100
[2025-02-14 03:31] LABS: Hematocrit 37.7 % (41.0-53.0); Hemoglobin 12.5 g/dL (13.5-17.5); Mean Corpuscular Hemoglobin 30.3 pg (28.0-32.0); Mean Corpuscular Volume 91.5 fL (80.0-100.0); Nucleated Red Blood Cells % 0.1 %
[2025-02-14 03:54] LABS: Alanine Aminotransferase 29 U/L (7-40); Albumin 3.9 g/dL (3.2-4.8); Alkaline Phosphatase 66 U/L (46-116); Anion Gap 12 (5-15); BUN/Creatinine Ratio 13.0 (10.0-20.0); Blood Urea Nitrogen 12 mg/dL (9-23); Calcium 9.0 mg/dL (8.7-10.4); Carbon Dioxide 22 mmol/L (20-31); Glucose 104 mg/dL (74-106); Magnesium 2.2 mg/dL (1.6-2.6); Sodium 142 mmol/L (136-145); Total Protein 6.6 g/dL (5.7-8.2)
[2025-02-14 03:55] LABS: Bilirubin, Total 1.0 mg/dL (0.2-1.0)
[2025-02-14 03:57] LABS: Chloride 108 mmol/L (98-107); Potassium 3.4 mmol/L (3.5-5.1)
[2025-02-14] MEDS: POTASSIUM CHL 20 Meq TABLET PO ONE (06:21)
[2025-02-14] MEDS: COLCHICINE 0.6 MG CAP PO SCH (10:59)
[2025-02-14] MEDS: EMPAGLIFLOZIN 10 MG TAB PO SCH (11:01)
--- NOTE | 2025-02-14 15:50 | DVHPN2 ---
Subjective No cardiac events reported Denies chest pain or shortness of breath Changes from previous H/P or p: No Changes Objective Vitals Vital Signs Date Time Temp Pulse Resp B/P (MAP) Pulse Ox O2 Delivery O2 Flow Rate FiO2 02/14/25 14:00 87 02/14/25 13:30 17 92/59 (70) 97 02/14/25 12:00 Nasal Cannula* 2 N/A Simple Mask* 02/14/25 11:30 97.7 97.7 Intake/Output Intake and Output 02/14/25 07:00 Intake Total 810 ml Output Total 850 ml Balance -40 ml Intake Oral 810 ml Output Urine Total 850 ml Medications Current Medications Medications Dose Ordered Sig/Nelson Route Start Time Stop Time Status Last Admin Dose Admin Nitroglycerin 0.4 mg Q5MINP PRN SL 02/12/25 16:15 Morphine Sulfate 2 mg Q30M PRN IV 02/12/25 16:30 Carvedilol 3.125 mg Q12HR PO 02/12/25 22:00 02/14/25 11:01 3.125 MG Atorvastatin Calcium 40 mg HS PO 02/12/25 22:00 02/13/25 23:17 40 MG Levothyroxine Sodium 25 mcg QAM@0600 PO 02/13/25 06:00 02/14/25 06:21 25 MCG Diagnostic Test (Pha) 1 strip ACHS 02/12/25 17:00 02/14/25 11:01 1 STRIP Insulin Human Regular ACHS SC 02/12/25 17:00 02/14/25 13:12 3 UNITS Dextrose 50 ml UD PRN IV 02/12/25 16:30 Ondansetron HCl 4 mg Q4HP PRN IV 02/12/25 16:30 Enoxaparin Sodium 90 mg BID SC 02/13/25 10:00 02/14/25 13:10 90 MG Albuterol 2.5 mg Q4HPRN PRN NEB 02/12/25 21:45 02/14/25 06:38 2.5 MG Zolpidem Tartrate 10 mg HSPRN PRN PO 02/12/25 22:15 02/12/25 22:22 10 MG Ticagrelor 90 mg BID PO 02/13/25 22:00 02/14/25 10:59 90 MG Hydroxyzine HCl 10 mg Q6HP PRN PO 02/13/25 16:15 Colchicine 0.6 mg DAILY PO 02/14/25 10:00 02/14/25 10:59 0.6 MG Empaglifozin 10 mg DAILY PO 02/14/25 10:00 02/14/25 11:01 10 MG Laboratory Results Laboratory Tests 02/14/25 02:40 Chemistry Test 02/14/25 02:40 Albumin 3.9 g/dL (3.2-4.8) Calcium Level 9.0 mg/dL (8.7-10.4) Magnesium Level 2.2 mg/dL (1.6-2.6) Phosphorus Level 2.8 mg/dL (2.4-5.1) Total Protein 6.6 g/dL (5.7-8.2) LFT Test 02/14/25 02:40 Alanine Aminotransferase (ALT) 29 U/L (7-40) Alkaline Phosphatase 66 U/L (46-116) Aspartate Amino Transferase (AST) 42 U/L (13-40) H Total Bilirubin 1.0 mg/dL (0.2-1.0) Microbiology Microbiology Date/Time Source Procedure Growth Status 02/12/25 20:38 Nose MRSA Screen - Final Complete Assessment/Plan Assessment/Plan NSTEMI Mid RCA thrombus Coronary artery disease status post multiple PTCAs x5 FANY (on Plavix and aspirin) Chronic HFrEF, NYHA class III Presence of AICD (Kovio) History myocardial infarction Hypertension Dyslipidemia COPD Pulmonary hypertension, severe degree Type 2 diabetes mellitus Thyroid disease Tobacco use Morbid obesity Plan/Recommendations (Dr. Fleming): 02/14/25 - switch Coreg to metoprolol tartrate 12.5 days given soft BP. Continue with Brilinta, Eliquis, and statins. Check Chest x-ray to evaluate pulmonary congestion, check BNP to evaluate volume status. Strict intake and output, daily weight Case discussed with . The patient underwent a transthoracic echocardiogram which revealed an EF of 10%, RVSP 75-80 mmHg. Initiate full guideline directed medical therapy with optimal blood pressures. Strict intake and output, daily weights, maintain fluid restriction, maintain low-sodium diet. The patient underwent a coronary angiogram with left heart catheterization on 02/12/2025 which revealed an occluded LAD, an occluded circumflex and filling defects in the mid RCA with thrombus. Given this high risk to consider angioplasty on the RCA without hemodynamic support or Impella, the patient's overall prognosis is poor. Recommendations for single antiplatelet therapy (switched to Brilinta per ) and with DOAC therapy (Eliquis). The patient should also continue lipid-lowering agent (statin therapy). Initiate colchicine. Continue with close cardiac surveillance. Thank you for allowing us to care for this patient. Please call with any questions or concerns. Critical care time spent: 38 minutes. This medical document was created using an electronic medical record system with voice recognition software and computerized dictation system. Although this document has been carefully reviewed, there might still be some phonetic and typographical errors. Occasional wrong-word or ``sound-alike substitutions may have occurred due to the inherent limitations of voice recognition software. These areas are purely typographical due to imperfections of the software programs and do not reflect any compromise in the patient's medical care. Please read the chart carefully and recognize, using context, where these substitutions have occurred. Plan discussed with: Patient Plan discussed with: Patient, Other (RN) Date of Service: Feb 14, 2025 Billing Provider: JESSICA FLEMING Sr., MD Common Visit Codes: CONSULT ONLY Consultation Codes: [id number] CONSULT <45MIN RAVI PEÑA Feb 14, 2025 15:50
--- NOTE | 2025-02-14 16:22 | DVH ---
EXAM: XY CHEST PORTABLE CLINICAL HISTORY: sob TECHNIQUE: Single AP view of the chest WID: COMPARISON: XY CHEST PORTABLE on DOS: 02/12/25 FINDINGS: Lines and tubes: There is a single lead left-sided AICD Chest: The heart size and pulmonary vasculature is within normal limits. Mild bibasilar linear and mixed opacities. No pleural effusion or pneumothorax. The osseous structures are grossly intact. IMPRESSION: 1. Mild bibasilar linear and mixed opacities which could reflect atelectasis, scarring, or pneumonia.
--- NOTE | 2025-02-14 17:45 | DVHPN2 ---
Assessment/Plan Assessment/Plan progress note 70 M transferred from OSH for elevated troponin. 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 titrate down as able. swith coreg to metop succ. OOBTC physical exam aox3, poor historian on oxymask b/l crackles s1 s2 rrr abdomen soft no LE edema labs ekg imaging reviewed assessment and plan NSTEMI CAD s/p FANY x5 on asa Plavix mid RCA thrombus HFrEF 10% acute on chronic systolic HF s/p AICD HTN HLD COPD group E acute on chronic hypoxic RF severe pHTN IDDM smoker morbid obesity cardio recc appreciated medical mgmt for CAD s/p LHC, occluded LAD, LCx and mid RCA thrombus Eliquis and brilinta steroid and nebs ISS resume home meds maintain spo2 >92 diet cardiac dvt ppx AC poor prognosis full code crit care time 45 minutes Plan discussed with: Patient My Orders Orders - SYDNEY BOYKIN MD Procedure Category Date Status Time Metoprolol Xl PHA 02/15/25 Verified Succinate (Toprol Xl) 10:00 Date of Service: Feb 14, 2025 Billing Provider: SYDNEY BOYKIN MD Common Visit Codes: [id number] CARE 30-74 MIN SYDNEY BOYKIN MD Feb 14, 2025 17:45
[2025-02-14] MEDS: FUROSEMIDE 40 MG/4 ML VIAL IV ONE (17:55)
[2025-02-14] MEDS: APIXABAN 5 MG TAB PO SCH (23:11)
[2025-02-15] VITALS (23 sets, daily range): BP systolic 91–107; BP diastolic 53–68; PULSE 74–89; RESP 13–24; TEMP 97.7–98.1; O2SAT 93–100
[2025-02-15 04:01] LABS: Chloride 106 mmol/L (98-107); Sodium 142 mmol/L (136-145)
[2025-02-15 04:02] LABS: Anion Gap 13 (5-15); Carbon Dioxide 23 mmol/L (20-31); Hematocrit 34.1 % (41.0-53.0); Hemoglobin 11.5 g/dL (13.5-17.5); Mean Corpuscular Hemoglobin 30.2 pg (28.0-32.0); Mean Corpuscular Volume 89.5 fL (80.0-100.0); Nucleated Red Blood Cells % 0.1 %
[2025-02-15 04:03] LABS: Calcium 9.0 mg/dL (8.7-10.4)
[2025-02-15 04:07] LABS: BUN/Creatinine Ratio 16.2 (10.0-20.0); Blood Urea Nitrogen 16 mg/dL (9-23); Glucose 94 mg/dL (74-106)
[2025-02-15 05:05] LABS: Potassium 3.2 mmol/L (3.5-5.1)
--- NOTE | 2025-02-15 05:41 | DVH ---
EXAM: XY CHEST PORTABLE HISTORY: CONGESTION COMPARISON: XY CHEST PORTABLE on DOS: 02/14/25, XY CHEST PORTABLE on DOS: 02/12/25, XR CHEST 1 VIEW on DOS: 02/12/25, XR CHEST 1 VIEW on DOS: 09/05/24, XR CHEST 1 VIEW on DOS: 08/21/24 TECHNIQUE: Portable AP view of the chest was performed. FINDINGS: Left chest AICD is re-identified. There is central interstitial prominence, slightly increased since the previous day. No pneumothorax or consolidative infiltrates. The heart is borderline enlarged. IMPRESSION: Increased interstitial prominence suggestive of worsening CHF.
[2025-02-15] MEDS: POTASSIUM CHL 20 Meq TABLET PO ONE (06:13)
[2025-02-15] MEDS: METOPROLOL SUCCINATE XL 50 MG TAB PO SCH (09:10)
[2025-02-15] MEDS ORDERED: METOPROLOL TARTRATE 25 MG TAB PO SCH (10:00)
[2025-02-15] MEDS: clonazePAM 0.5 MG TAB PO SCH (11:02)
--- NOTE | 2025-02-15 18:40 | DVHPN2 ---
Assessment/Plan Assessment/Plan progress note 70 M transferred from OSH for elevated troponin. 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 transfer tele. dispo planning physical exam aox3, poor historian on oxymask b/l crackles s1 s2 rrr abdomen soft no LE edema labs ekg imaging reviewed assessment and plan NSTEMI CAD s/p FANY x5 on asa Plavix mid RCA thrombus HFrEF 10% acute on chronic systolic HF s/p AICD HTN HLD COPD group E acute on chronic hypoxic RF severe pHTN IDDM smoker morbid obesity cardio recc appreciated medical mgmt for CAD s/p LHC, occluded LAD, LCx and mid RCA thrombus Eliquis and brilinta steroid and nebs ISS resume home meds maintain spo2 >92 diet cardiac dvt ppx AC poor prognosis full code crit care time 35 minutes Plan discussed with: Patient My Orders Orders - SYDNEY BOYKIN MD Procedure Category Date Status Time Clonazepam Tablet PHA 02/15/25 In Process (Klonopin Tablet) 11:00 Transfer Orders XFER 02/15/25 Transmitted 16:54 Date of Service: Feb 15, 2025 Billing Provider: SYDNEY BOYKIN MD Common Visit Codes: [id number] CARE 30-74 MIN SYDNEY BOYKIN MD Feb 15, 2025 18:40
[2025-02-16] VITALS (8 sets, daily range): BP systolic 100–119; BP diastolic 56–79; PULSE 78–83; RESP 18–20; TEMP 98.1–98.5; O2SAT 93–99
[2025-02-16] MEDS: hydrOXYzine HCL 10 MG TAB PO PRN (04:38)
[2025-02-16 06:05] LABS: Chloride 105 mmol/L (98-107); Potassium 4.1 mmol/L (3.5-5.1); Sodium 139 mmol/L (136-145)
[2025-02-16 06:06] LABS: Anion Gap 13 (5-15); Calcium 9.0 mg/dL (8.7-10.4); Carbon Dioxide 21 mmol/L (20-31)
[2025-02-16 06:11] LABS: BUN/Creatinine Ratio 14.1 (10.0-20.0); Blood Urea Nitrogen 14 mg/dL (9-23)
[2025-02-16 06:22] LABS: Glucose 113 mg/dL (74-106)
--- NOTE | 2025-02-16 18:48 | DVHDS2 ---
Discharge Summary Date of Admission Feb 12, 2025 at 16:12 Date of Discharge: Feb 16, 2025 Labs/Diagnostic Data: Laboratory Results Test 02/16/25 10:46 02/16/25 04:54 02/15/25 03:04 02/14/25 02:40 POC Glucose 156 mg/dl (70-106) Sodium Level 139 mmol/L (136-145) Potassium Level 4.1 mmol/L (3.5-5.1) Chloride Level 105 mmol/L (98-107) Carbon Dioxide Level 21 mmol/L (20-31) Anion Gap 13 (5-15) Blood Urea Nitrogen 14 mg/dL (9-23) Creatinine 0.99 mg/dL (0.700-1.30) Glomerular Filtration Rate Calc 81 mL/min (>90) BUN/Creatinine Ratio 14.1 (10.0-20.0) Serum Glucose 113 mg/dL (74-106) Calcium Level 9.0 mg/dL (8.7-10.4) White Blood Count 8.3 10^3/uL (4.4-10.8) Red Blood Count 3.81 10^6/uL (4.5-5.90) Hemoglobin 11.5 g/dL (13.5-17.5) Hematocrit 34.1 % (41.0-53.0) Mean Corpuscular Volume 89.5 fL (80.0-100.0) Mean Corpuscular Hemoglobin 30.2 pg (28.0-32.0) Mean Corpuscular Hemoglobin Concent 33.8 g/dL (32.0-36.0) Red Cell Distribution Width 16.5 % (11.8-14.3) Platelet Count 338 10^3/uL (140-450) Mean Platelet Volume 7.1 fL (6.9-10.8) Neutrophils (%) (Auto) 73.2 % (37.0-80.0) Lymphocytes (%) (Auto) 12.5 % (10.0-50.0) Monocytes (%) (Auto) 10.4 % (0.0-12.0) Eosinophils (%) (Auto) 3.2 % (0.0-7.0) Basophils (%) (Auto) 0.7 % (0.0-2.0) Neutrophils # (Auto) 6.0 10 ^3/uL (1.6-8.6) Lymphocytes # (Auto) 1.0 10 ^3/uL (0.4-5.4) Monocytes # (Auto) 0.9 10 ^3/uL (0-1.3) Eosinophils # (Auto) 0.3 10 ^3/uL (0-0.8) Basophils # (Auto) 0.1 10 ^3/uL (0-0.2) Nucleated Red Blood Cells 0.1 % Phosphorus Level 2.8 mg/dL (2.4-5.1) Magnesium Level 2.2 mg/dL (1.6-2.6) Total Bilirubin 1.0 mg/dL (0.2-1.0) Aspartate Amino Transferase (AST) 42 U/L (13-40) Alanine Aminotransferase (ALT) 29 U/L (7-40) Alkaline Phosphatase 66 U/L (46-116) B-Type Natriuretic Peptide 442.51 pg/mL (0-100) Total Protein 6.6 g/dL (5.7-8.2) Albumin 3.9 g/dL (3.2-4.8) Test 02/13/25 08:56 02/12/25 16:14 02/12/25 11:35 Prothrombin Time 10.6 sec (9.3-11.8) Prothrombin Time INR 1.00 (0.9-1.15) Activated Partial Thromboplast Time 25.6 SEC (24.5-34.5) Troponin I High Sensitivity 9394 ng/L (</=54) Hemoglobin A1c 7.4 % A1C (<5.7) Triglycerides Level 136 mg/dL (< 150) Cholesterol Level 181 mg/dL (< 200) LDL Cholesterol 123 mg/dL (< 100) HDL Cholesterol 47 mg/dL (40-59) Thyroid Stimulating Hormone (TSH) 1.39 uIU/mL (0.55-4.78) Other Laboratory Tests 02/16/25 04:54 02/15/25 03:04 Brief Hx & Hospital Course: 70 M transferred from OSH for elevated troponin. 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 s/p LHC, occluded LAD, LCx and mid RCA thrombus, per cardio to be treated with eliquis and brilinta. titrated off o2, transfered to telemetry. patient today left against medical advise. did not take antiplatelets and anticoag whih is possibly why his stents closed. Condition at Discharge: Poor Final Diagnosis/Problems List NSTEMI CAD s/p FANY x5 on asa Plavix mid RCA thrombus HFrEF 10% acute on chronic systolic HF s/p AICD HTN HLD COPD group E acute on chronic hypoxic RF severe pHTN IDDM smoker morbid obesity Discharge Disposition: AMA Discharge Statement: "Patient was advised to return to the ER or call 911 if any headaches, dizziness, shortness of breath, chest pain, abdominal pain, bleeding, fevers, or worsening of medical condition. Patient was counseled about treatment plan, medications, possible side effects, patientverbalized understanding. All questions were answered to the best of my ability. This discharge took greater then 30 minutes in planning, reviewing documentation, counseling the patient, and discussing with other team members." ASSESSMENT ASSESSMENT Assessment Acute coronary syndrome Date of Service: Feb 16, 2025 Billing Provider: SYDNEY BOYKIN MD Common Visit Codes: [id number] DISCH DAY >30min SYDNEY BOYKIN MD Feb 16, 2025 18:48
--- NOTE | 2025-02-19 09:05 | ECG ---
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
== END 2025-02-16 12:46 | disposition left against medical advice (07) | DRG 280 ==
LOC: EDBD 11:07 → ER 11:13 → OVERFLOW 16:12 → ICU WEST 20:29 → TELE-WESTW 02-15 17:50
PROVIDERS: ADMIT Student in an Organized Health Care Education/Training Program; ATTEND Student in an Organized Health Care Education/Training Program
PROC: 4A023N7 Measurement of Cardiac Sampling and Pressure, Left Heart, Percutaneous Approach (ICD-10-PCS; principal; 2025-02-12)
PROC: B211YZZ Fluoroscopy of Multiple Coronary Arteries using Other Contrast (ICD-10-PCS; 2025-02-12)
PROC: B215YZZ Fluoroscopy of Left Heart using Other Contrast (ICD-10-PCS; 2025-02-12)
PROC: 02JA3ZZ Inspection of Heart, Percutaneous Approach (ICD-10-PCS; 2025-02-12)
DX: I21.4 Non-ST elevation (NSTEMI) myocardial infarction (principal); I50.23 Acute on chronic systolic (congestive) heart failure; J96.21 Acute and chronic respiratory failure with hypoxia; I42.0 Dilated cardiomyopathy; E11.9 Type 2 diabetes mellitus without complications; E66.01 Morbid (severe) obesity due to excess calories; E78.5 Hyperlipidemia, unspecified; I25.10 Atherosclerotic heart disease of native coronary artery without angina pectoris; E07.9 Disorder of thyroid, unspecified; J44.9 Chronic obstructive pulmonary disease, unspecified; F17.200 Nicotine dependence, unspecified, uncomplicated; I11.0 Hypertensive heart disease with heart failure; I25.2 Old myocardial infarction; I25.5 Ischemic cardiomyopathy; I27.20 Pulmonary hypertension, unspecified; Z53.29 Procedure and treatment not carried out because of patient's decision for other reasons; Z79.02 Long term (current) use of antithrombotics/antiplatelets; Z79.4 Long term (current) use of insulin; Z93.1 Gastrostomy status; Z95.5 Presence of coronary angioplasty implant and graft; Z95.810 Presence of automatic (implantable) cardiac defibrillator; Z68.28 Body mass index [BMI] 28.0-28.9, adult; Z79.899 Other long term (current) drug therapy
CPT/HCPCS: 36415; 71045; 80048; 80053; 80061; 82962; 83036; 83735; 83880; 84100; 84443; 84484; 85025; 85610; 85730; 87081; 93005; 93306; 93458; 94640; 99152; 99291; C1887; G0378; J1815; J2250; Q9967

== ENCOUNTER 2025-02-23 07:46 | Inpatient (IN) | payer OTHER ==
[~2025-02-23] VITALS: Ht 172.7 cm; Wt 80.2 kg
[~2025-02-23 07:46] MED LIST: CHOL50007 PO; CLOP75TA28 PO; INSU100I54 SC; INSU1INJ19 SC; LEVO25TA6 PO; TAMS0.4C39 PO
--- NOTE | 2025-02-23 08:02 | ED.PDOC ---
HPI Comments 70 year old male with PMHx OH, cardiac stents, pacemaker presents to the ED with a chief complaint of chest pain onset last night. Per EMS, patient was transferred from [facility] for elevated troponin, NSTEMI. Patient states he went in for RT leg pain with numbness, was told troponin was elevated, had cardio workup, states there was no workup on his leg. Patient has a feeding tube in place, has discomfort around tube region, states he is concerned it is infected. Denies chest pain, shortness of breath, dizziness, fever, chills, cough, back pain, fall, injury, headache, blurred vision. No other symptoms or modifying factors present at this time. Time Seen by MD: 07:55 Reviewed Notes: Medications, Allergies Allergies: Coded Allergies: NO KNOWN ALLERGIES (Unverified , 02/12/25) Information Source: Patient, Emergency Med Personnel Mode of Arrival: EMS Severity: Moderate Timing: Hours Duration: Since onset Prehospital treatment: None Onset: At Rest Cardiac Risk Factors: None PE Risk Factors: None History of: OH Modifying Factors: Nothing Associated Signs and Symptoms: Other Past Medical History PAST MEDICAL HISTORY: OH Surgical History: Pacemaker, PTCA Family History Family History: Reviewed,noncontributory to illness Social History Smoker: Non-Smoker Alcohol: Denies ETOH Use Drugs: Denies Drug Use Lives In: Home Constitutional: denies: chills, diaphoresis, fatigue, fever, malaise, sweats, weakness, others EENTM: denies: blurred vision, double vision, ear bleeding, ear discharge, ear drainage, ear pain, ear ringing, eye pain, eye redness, hearing loss, mouth pain, mouth swelling, nasal discharge, nose bleeding, nose congestion, nose pain, photophobia, tearing, throat pain, throat swelling, voice changes, others Respiratory: denies: cough, hemoptysis, orthopnea, SOB at rest, shortness of breath, SOB with excertion, stridor, wheezing, others Cardiovascular: denies: chest pain, dizzy spells, diaphoresis, Dyspnea on exertion, edema, irregular heart beat, left arm pain, lightheadedness, palpitations, PND, syncope, others Gastrointestinal: denies: abdomen distended, abdominal pain, blood streaked bowels, constipated, diarrhea, dysphagia, difficulty swallowing, hematemesis, melena, nausea, poor appetite, poor fluid intake, rectal bleeding, rectal pain, vomiting, others Genitourinary: denies: burning, dysuria, flank pain, frequency, hematuria, incontinence, penile discharge, penile sore, pain, testicle pain, testicle swelling, urgency, others Neurological: reports: numbness (RT leg); denies: dizziness, fainting, headache, left sided numbness, left sided weakness, paresthesia, pre-existing deficit, right sided numbness, right sided weakness, seizure, speech problems, tingling, tremors, weakness, others Musculoskeletal: reports: others (RT leg pain); denies: back pain, gout, joint pain, joint swelling, muscle pain, muscle stiffness, neck pain Integumetry: denies: bruises, change in color, change in hair/nails, dryness, laceration, lesions, lumps, rash, wounds, others Allergic/Immunocompromised: denies: Difficulty Healing, Frequent Infections, Hives, Itching, others Hematologic/Lymphatic: denies: anemia, blood clots, easy bleeding, easy bruising, swollen glands, others Endocrine: denies: excessive hunger, excessive sweating, excessive thirst, excessive urination, flushing, intolerance to cold, intolerance to heat, unexplained weight gain, unexplained weight loss, others Psychiatric: denies: anxiety, bipolar disorder, depression, hopeless, panic disorder, schizophrenia, sleepless, suicidal, others All Other Systems: Reviewed and Negative Physical Exam General Appearance: Normal HEENT: Normal ENT Inspection, Pharynx Normal, TMs Normal Neck: Full Range of Motion, Non-Tender, Normal, Normal Inspection Respiratory: Chest Non-Tender, Lungs Clear, No Accessory Muscle Use, No Respiratory Distress, Normal Breath Sounds Cardiovascular: No Edema, No JVD, No Murmur, No Gallop, Normal Peripheral Pulses, Regular Rate/Rhythm Breast Exam: Deferred Gastrointestinal: No Organomegaly, Non Tender, No Pulsatile Mass, Normal Bowel Sounds, Soft Genitalia: Deferred Pelvic: Deferred Rectal: Deferred Extremities: No calf tenderness, Normal capillary refill, Normal inspection, Normal range of motion, Non-tender, No pedal edema Musculoskeletal : Apperance: Normal Neurologic: Alert, front desk monitor II-XII nml as Tested, No Motor Deficits, Normal Affect, Normal Mood, No Sensory Deficits Cerebellar Function: Normal Reflexes: Normal Skin: Dry, Normal Color, Warm Lymphatic: No Adenopathy Was a procedure done? Was a procedure done?: No CP Differential Dx Differential Diagnosis: Hyperventilation, MAT Differential Diagnosis: CHF, HTN Essential, HTN Accelerated Differential Diagnosis: Gastritis, Myocardial Infarction, Pericarditis X-Ray, Labs, Meds, VS Vital Signs Date Time Temp Pulse Resp B/P (MAP) Pulse Ox O2 Delivery O2 Flow Rate FiO2 02/23/25 11:23 86 02/23/25 09:38 86 19 93/54 02/23/25 09:02 94 25 104/64 02/23/25 08:55 90 02/23/25 08:15 93 02/23/25 08:13 98.3 93 22 105/66 (79) 97 98.3 02/23/25 08:13 93 22 97 Nasal Cannula* 2 28 02/23/25 07:57 97.8 94 18 107/67 100 97.8 02/23/25 07:53 91 Lab Test 02/23/25 10:27 02/23/25 10:21 02/23/25 08:41 Range/Units Troponin I High Sensitivity 281 *H 379 *H </=54 ng/L Urine Color Light-yellow Yellow Urine Clarity Clear Clear Urine pH 6.0 5.0-9.0 Urine Specific [place] > 1.050 H 1.001-1.035 Urine Protein Negative Negative Urine Ketones 1+ H Negative Urine Blood Negative Negative /uL Urine Nitrite Negative Negative Urine Bilirubin Negative Negative Urine Urobilinogen Normal Negative mg/dL Urine Leukocyte Esterase Negative Negative /uL Urine RBC 1 0 - 3 /hpf Urine Microscopic WBC 1 0-3 /HPF Urine Squamous Epithelial Cells Few <5 /hpf Urine Bacteria None seen None Seen /hpf Urine Mucus Few None Seen Urine Glucose Normal Normal mg/dL White Blood Count 6.4 4.4-10.8 10^3/uL Red Blood Count 3.52 L 4.5-5.90 10^6/uL Hemoglobin 10.3 L 13.5-17.5 g/dL Hematocrit 32.8 L 41.0-53.0 % Mean Corpuscular Volume 93.2 80.0-100.0 fL Mean Corpuscular Hemoglobin 29.2 28.0-32.0 pg Mean Corpuscular Hemoglobin Concent 31.4 L 32.0-36.0 g/dL Red Cell Distribution Width 17.7 H 11.8-14.3 % Platelet Count 269 140-450 10^3/uL Mean Platelet Volume 6.8 L 6.9-10.8 fL Neutrophils (%) (Auto) 67.6 37.0-80.0 % Lymphocytes (%) (Auto) 17.6 10.0-50.0 % Monocytes (%) (Auto) 6.4 0.0-12.0 % Eosinophils (%) (Auto) 7.6 H 0.0-7.0 % Basophils (%) (Auto) 0.8 0.0-2.0 % Neutrophils # (Auto) 4.3 1.6-8.6 10 ^3/uL Lymphocytes # (Auto) 1.1 0.4-5.4 10 ^3/uL Monocytes # (Auto) 0.4 0-1.3 10 ^3/uL Eosinophils # (Auto) 0.5 0-0.8 10 ^3/uL Basophils # (Auto) 0.1 0-0.2 10 ^3/uL Nucleated Red Blood Cells 0.1 % D-Dimer, Quantitative 1.78 H 0.0-0.49 mg/L FEU Sodium Level 142 136-145 mmol/L Potassium Level 4.0 3.5-5.1 mmol/L Chloride Level 109 H 98-107 mmol/L Carbon Dioxide Level 22 20-31 mmol/L Anion Gap 11 5-15 Blood Urea Nitrogen 8 L 9-23 mg/dL Creatinine 0.87 0.700-1.30 mg/dL Glomerular Filtration Rate Calc 92 >90 mL/min BUN/Creatinine Ratio 9.2 L 10.0-20.0 Serum Glucose 114 H 74-106 mg/dL Calcium Level 8.0 L 8.7-10.4 mg/dL Current Medications Medications (Trade) Dose Ordered Sig/Nelson Route Start Time Stop Time Status Last Admin Hydromorphone HCl (Dilaudid Injection) 1 mg ONCE ONCE IV 02/23/25 08:45 02/23/25 08:46 DC 02/23/25 09:02 Ondansetron HCl (Zofran) 4 mg ONCE ONCE IV 02/23/25 08:45 02/23/25 08:46 DC 02/23/25 09:01 Aspirin 325 mg ONCE ONCE PO 02/23/25 10:00 02/23/25 10:01 DC 02/23/25 10:[address] [address] Ph: [phone] DIAGNOSTIC IMAGING Diagnostic Imaging Report : [id number] Signed PATIENT: JUSTIN PRESTON ACCT: [id number] UNIT: [id number] : 1955 LOC: ER ROOM / BED: / AGE / SEX: 70 / M ADM STATUS: REG ER SERVICE 2 ORDERING PHYSICIAN: PATTY PETERSEN MD PROCEDURE(s): CXRP - CHEST PORTABLE REASON: leg pain ORDER NUMBER(s): [id number], ACCESSION NUMBER(s): [id number] EXAM: XY CHEST PORTABLE Indication: leg pain Technique: Single frontal view of the chest was obtained Comparison: CTA CHEST on DOS: 02/23/25, XR CHEST 2 VIEWS on DOS: 02/23/25, XY CHEST PORTABLE on DOS: 02/15/25, XY CHEST PORTABLE on DOS: 02/14/25, XY CHEST PORTABLE on DOS: 02/12/25 FINDINGS: Lines and Tubes: Cardiac pacemaker projects over the left chest wall. Lungs: Pulmonary edema. Pleura: Possible trace right pleural effusion. No pneumothorax. Cardiomediastinal contours: Cardiomegaly. Bones: No acute osseous abnormality. IMPRESSION: Cardiomegaly with pulmonary edema and possible trace right pleural effusion. Superimposed atypical infection can not be excluded. ATED BY: ALEXANDR GUTIERREZ MD DICTATED DATE/TIME: 02/23/25911 SIGNED BY: ALEXANDR GUTIERREZ MD SIGNED DATE/TIME: 02/23/25911 CC: Time of 1ST Reevaluation: 08:25 Reevaluation 1ST: Unchanged Patient Education/Counseling: Diagnosis, Treatment, Prognosis Family Education/Counseling: No Family Present SEPSIS Sepsis Screen Physician Orders Electrocardigram (02/23/25 10:57) Chest Portable (02/23/25 08:33) Troponin-I Hs (02/23/25 11:33) Rt Lower Dvt (02/23/25 09:53) Vital Signs Date Time Temp Pulse Resp B/P (MAP) Pulse Ox O2 Delivery O2 Flow Rate FiO2 02/23/25 11:23 86 02/23/25 09:38 86 19 93/54 02/23/25 09:02 94 25 104/64 02/23/25 08:55 90 02/23/25 08:15 93 02/23/25 08:13 98.3 93 22 105/66 (79) 97 98.3 02/23/25 08:13 93 22 97 Nasal Cannula* 2 28 02/23/25 07:57 97.8 94 18 107/67 100 97.8 02/23/25 07:53 91 Laboratory Tests Test 02/23/25 08:41 White Blood Count 6.4 10^3/uL (4.4-10.8) Medications Medications Dose Ordered Sig/Enlson Route Start Time Stop Time Status Last Admin Dose Admin Aspirin 325 mg ONCE ONCE PO 02/23/25 10:00 02/23/25 10:01 DC 02/23/25 10:28 Hydromorphone HCl 1 mg ONCE ONCE IV 02/23/25 08:45 02/23/25 08:46 DC 02/23/25 09:02 Ondansetron HCl 4 mg ONCE ONCE IV 02/23/25 08:45 02/23/25 08:46 DC 02/23/25 09:01 Departure 1 Departure Time of Disposition: 12:02 (Patient was a transfer from an outside hospital for concern for NSTEMI. Patient has a elevated troponin. Patient is complaining about chest pain and right leg pain. We will admit patient for further workup) Impression: Primary Impression: Acute chest pain Additional Impression: Right leg pain Disposition: ADMITTED INPATIENT Admit to: [facility] Condition: Guarded Critical Care Note Critical Care Time?: Yes Critical care comment: Acute chest pain Authorized and Performed by: Patty Petersen MD Total critical care time: Approximately 38 minutes Due to a high probability of clinically significant, life threatening deterioration, the patient required my highest level of preparedness to intervene emergently and I personally spent this critical care time directly and personally managing the patient. This critical care time included obtaining a history; examining the patient; pulse oximetry; ordering and review of studies; arranging urgent treatment with development of a management plan; evaluation of patient's response to treatment; frequent reassessment; and, discussions with other providers. This critical care time was performed to assess and manage the high probability of imminent, life-threatening deterioration that could result in multi-organ failure. It was exclusive of separately billable procedures and treating other patients and teaching time. Please see my other sections and the rest of the note for further information on patient assessment and treatment. Stability Stability form required: No Heart Score Heart Score: Heart Score Response (Comments) Value History Moderate Suspicious 1 EKG Repolarization Disturb 1 Age >65 2 Risk Factors >3 or Hx ASHD 2 Troponin >3 x's Normal limit 2 Total 8 I personally scribed for PATTY PETERSEN MD ([email or web address]) on 02/23/25 at 08:02. Electronically submitted by Ani Grier ([email or web address]). I personally scribed for PATTY PETERSEN MD ([email or web address]) on 02/23/25 at 08:24. Electronically submitted by Ani Grier ([email or web address]). I personally scribed for PATTY PETERSEN MD ([email or web address]) on 02/23/25 at 09:28. Electronically submitted by Ani Grier ([email or web address]). PATTY PETERSEN MD Feb 23, 2025 08:02
--- NOTE | 2025-02-23 08:05 | ECG ---
[facility] Test Date: 2025-02-23 Test Time: 07:53:49 Pat Name: JUSTIN PRESTON Department: [facility] ED Patient ID: [id number] Room: Gender: M Independent Crop Consultant: SARAH : 1955 Requested By: PATTY MACK Order Number: [id number] Reading MD: Measurements Intervals [place] Rate: 91 P: 54 AL: 159 QRS: -14 QRSD: 118 T: 190 QT: 418 QTc: 515 Interpretive Statements Sinus rhythm Nonspecific intraventricular conduction delay Anteroseptal infarct, old Nonspecific T abnormalities, lateral leads Please click the below link to view image of tracing.
[2025-02-23 08:13] VITALS: PULSE 93; RESP 22; O2SAT 97
[2025-02-23 09:01] LABS: Hematocrit 32.8 % (41.0-53.0); Hemoglobin 10.3 g/dL (13.5-17.5); Mean Corpuscular Hemoglobin 29.2 pg (28.0-32.0); Mean Corpuscular Volume 93.2 fL (80.0-100.0); Nucleated Red Blood Cells % 0.1 %
[2025-02-23] MEDS: ONDANSETRON HCL 4 MG/2 ML VIAL IV ONE (09:01)
[2025-02-23] MEDS: HYDROmorphone HCL 2 MG/ML VL/or syr IV ONE (09:02)
[2025-02-23 09:13] LABS: Potassium 4.0 mmol/L (3.5-5.1); Sodium 142 mmol/L (136-145)
[2025-02-23 09:14] LABS: Anion Gap 11 (5-15); Carbon Dioxide 22 mmol/L (20-31)
--- NOTE | 2025-02-23 09:14 | DVH ---
EXAM: XY CHEST PORTABLE Indication: leg pain Technique: Single frontal view of the chest was obtained Comparison: CTA CHEST on DOS: 02/23/25, XR CHEST 2 VIEWS on DOS: 02/23/25, XY CHEST PORTABLE on DOS: 02/15/25, XY CHEST PORTABLE on DOS: 02/14/25, XY CHEST PORTABLE on DOS: 02/12/25 FINDINGS: Lines and Tubes: Cardiac pacemaker projects over the left chest wall. Lungs: Pulmonary edema. Pleura: Possible trace right pleural effusion. No pneumothorax. Cardiomediastinal contours: Cardiomegaly. Bones: No acute osseous abnormality. IMPRESSION: Cardiomegaly with pulmonary edema and possible trace right pleural effusion. Superimposed atypical in fection can not be excluded.
[2025-02-23 09:16] LABS: Calcium 8.0 mg/dL (8.7-10.4); Chloride 109 mmol/L (98-107)
[2025-02-23 09:19] LABS: BUN/Creatinine Ratio 9.2 (10.0-20.0); Blood Urea Nitrogen 8 mg/dL (9-23); Glucose 114 mg/dL (74-106)
--- NOTE | 2025-02-23 10:27 | ECG ---
[facility] Test Date: 2025-02-23 Test Time: 08:55:57 Pat Name: JUSTIN PRESTON Department: [facility] ED Room: Gender: M Medical Staff Services Coordinator: sb : 1955 Requested By: PATTY MACK Order Number: [id number] Reading MD: Measurements Intervals [place] Rate: 90 P: 36 NE: 157 QRS: 2 QRSD: 121 T: 127 QT: 400 QTc: 490 Interpretive Statements Sinus rhythm Nonspecific intraventricular conduction delay Anteroseptal infarct, old Nonspecific T abnormalities, lateral leads Please click the below link to view image of tracing.
--- NOTE | 2025-02-23 10:32 | DVH ---
Right lower extremity venous duplex Clinical History: right leg pain Comparison: RIGHT CTA LOWER EXTREMITY on DOS: 02/23/25 Findings: Duplex Doppler evaluation of the deep venous system of the right lower extremity from the common femo ral vein to the popliteal vein including color Doppler and spectral/pulsed waveform analysis was perf ormed. The common femoral vein demonstrates appropriate compressibility and waveform variability. There is compressibility/patency of the great saphenous vein at the proximal thigh. The femoral vein demonstrates appropriate compressibility and waveform variability. The deep femoral vein demonstrates appropriate compressibility and waveform variability. The popliteal vein demonstrates appropriate compressibility and waveform variability. There is normal compressibility at the tibioperoneal trunk. Impression: No right femoropopliteal venous thrombosis. If clinical concern/symptoms persist or worsen, short-interval follow-up study is suggested.
[2025-02-23 11:43] LABS: Urine Protein, UAD Negative (Negative)
--- NOTE | 2025-02-23 14:45 | DVH ---
RIGHT Lower Extremity Arterial Duplex Date: 02/23/2025 02:18 PM Clinical History: weak pulses Comparison: None Technique: Duplex Doppler evaluation including color Doppler and spectral/pulsed waveform analysis of the lower extremity arteries was performed. Finding: RIGHT: Peak systolic velocities are as follows: SENIOR MARKETING ANALYST 63 cm/s MONOPHASIC WAVEFORM Deep femoral 110 cm/s monophasic waveform SFA proximal 33 cm/s monophasic waveform SFA mid-portion 24 cm/s monophasic waveform SFA distal 22 cm/s monophasic waveform Popliteal 26 cm/s monophasic waveform Posterior tibial 0 cm/s Anterior tibial 0 cm/s Dorsalis pedis 11 cm/s monophasic waveform The waveforms are monophasic waveform throughout. REFERENCE VALUES, [facility]) vascular Imaging Lab Criteria: Peak systolic velocity ranges (in cm/sec) are as follows: <150 cm/s - <20 % stenosis 150-200 cm/s - 20-49% stenosis 200-300 cm/s - 50-75% stenosis >300 cm/s -> 75% stenosis IMPRESSION: 1. There is peripheral vascular disease throughout the right lower extremity with monophasic waveform . 2. No pulse was noted in the posterior or anterior tibial arteries. 3. Pulse in the dorsalis pedis is measured at 11 cm/sec and was seen to be monophasic 4. There is no evidence for peripheral vascular insufficiency in the left lower extremity.
[2025-02-23] MEDS ORDERED: MORPHINE SULFATE INJ 2 MG/ml SYRG IV PRN (15:30)
[2025-02-23] MEDS ORDERED: NITROGLYCERIN 0.4 MG SL TAB SL PRN (15:30)
[2025-02-23] MEDS ORDERED: DEXTROSE (50%) 50ML SYRG IV PRN (15:45)
[2025-02-23] MEDS ORDERED: ONDANSETRON HCL 4 MG/2 ML VIAL IV PRN (15:45)
--- NOTE | 2025-02-23 15:48 | DVHHP2 ---
History of Present Illness History of Present Illness 70-year-old male with a history of coronary artery disease, ischemic cardiomyopathy, ejection fraction 10%, type 2 diabetes, hypertension who he says was at [facility] a month ago and had a stroke which required intubation and then he also had a G-tube placed and was discharged after that and he is supposed to be taking aspirin and Plavix for prior OH and coronary artery disease because he had several stents done before, he was here in the hospital 1 week ago with chest pain and was diagnosed with an NSTEMI and required heart catheterization at the time it showed multiple vessel coronary artery disease with occluded LAD and occluded circumflex and a thrombus in the RCA, PTCA was attempted but was not possible of the circumflex artery, medical management was recommended for him to be taking Eliquis and Brilinta however the patient left the hospital AMA the next day without getting these prescriptions Currently he says he takes his medications which he took before which he was on aspirin and Plavix previously but he is not sure what exactly he is taking Today he is coming here because of complaint of the right leg pain that he had for about 5 days. No chest pain now He has a history of pacemaker placement, prior EF is 10%, COPD, hypertension, dyslipidemia, type 2 diabetes He is still smokes Cardiovascular: CAD, CHF, HTN, OH, pulmonary hypertension CONTINUITY COORDINATOR: CVA Endocrine: Diabetes Smoke: 1 pack per day Review of Systems Allergies: Coded Allergies: NO KNOWN ALLERGIES (Unverified , 02/12/25) Exam Vital Signs Vital Signs Date Time Temp Pulse Resp B/P (MAP) Pulse Ox O2 Delivery O2 Flow Rate FiO2 02/23/25 14:00 94 23 90/39 (56) 97 02/23/25 08:13 98.3 98.3 02/23/25 08:13 Nasal Cannula* 2 28 General Appearance: Alert, Oriented X3, Cooperative, No acute distress Respiratory: Clear to auscultation, Normal air movement Cardiovascular: Regular rate, Normal S1, Normal S2, No murmurs Abdominal: Normal bowel sounds, Soft, No tenderness Extremities: No edema Labs/Xrays Labs Test 02/23/25 12:36 02/23/25 10:21 02/23/25 08:41 Range/Units Troponin I High Sensitivity 272 *H </=54 ng/L Urine Color Light-yellow Yellow Urine Clarity Clear Clear Urine pH 6.0 5.0-9.0 Urine Specific [place] > 1.050 H 1.001-1.035 Urine Protein Negative Negative Urine Ketones 1+ H Negative Urine Blood Negative Negative /uL Urine Nitrite Negative Negative Urine Bilirubin Negative Negative Urine Urobilinogen Normal Negative mg/dL Urine Leukocyte Esterase Negative Negative /uL Urine RBC 1 0 - 3 /hpf Urine Microscopic WBC 1 0-3 /HPF Urine Squamous Epithelial Cells Few <5 /hpf Urine Bacteria None seen None Seen /hpf Urine Mucus Few None Seen Urine Glucose Normal Normal mg/dL White Blood Count 6.4 4.4-10.8 10^3/uL Red Blood Count 3.52 L 4.5-5.90 10^6/uL Hemoglobin 10.3 L 13.5-17.5 g/dL Hematocrit 32.8 L 41.0-53.0 % Mean Corpuscular Volume 93.2 80.0-100.0 fL Mean Corpuscular Hemoglobin 29.2 28.0-32.0 pg Mean Corpuscular Hemoglobin Concent 31.4 L 32.0-36.0 g/dL Red Cell Distribution Width 17.7 H 11.8-14.3 % Platelet Count 269 140-450 10^3/uL Mean Platelet Volume 6.8 L 6.9-10.8 fL Neutrophils (%) (Auto) 67.6 37.0-80.0 % Lymphocytes (%) (Auto) 17.6 10.0-50.0 % Monocytes (%) (Auto) 6.4 0.0-12.0 % Eosinophils (%) (Auto) 7.6 H 0.0-7.0 % Basophils (%) (Auto) 0.8 0.0-2.0 % Neutrophils # (Auto) 4.3 1.6-8.6 10 ^3/uL Lymphocytes # (Auto) 1.1 0.4-5.4 10 ^3/uL Monocytes # (Auto) 0.4 0-1.3 10 ^3/uL Eosinophils # (Auto) 0.5 0-0.8 10 ^3/uL Basophils # (Auto) 0.1 0-0.2 10 ^3/uL Nucleated Red Blood Cells 0.1 % D-Dimer, Quantitative 1.78 H 0.0-0.49 mg/L FEU Sodium Level 142 136-145 mmol/L Potassium Level 4.0 3.5-5.1 mmol/L Chloride Level 109 H 98-107 mmol/L Carbon Dioxide Level 22 20-31 mmol/L Anion Gap 11 5-15 Blood Urea Nitrogen 8 L 9-23 mg/dL Creatinine 0.87 0.700-1.30 mg/dL Glomerular Filtration Rate Calc 92 >90 mL/min BUN/Creatinine Ratio 9.2 L 10.0-20.0 Serum Glucose 114 H 74-106 mg/dL Calcium Level 8.0 L 8.7-10.4 mg/dL SEPSIS Sepsis Screen Date sepsis recognized/suspect: Feb 23, 2025 Time Sepsis recognized/suspect: 812 Recent Procedure: No On Antibiotic Therapy: No Respiratory Rate >20: Yes Heart Rate >90: Yes Temp<36 C (96.8 F) or >38.3 C: No SBP <90 or MAP <65 mmHG: No New Acute Mental Status Change: No Is the patient on CPAP, BIPAP,: No Physician Orders Electrocardigram (02/23/25 10:57) Chest Portable (02/23/25 08:33) Rt Lower Dvt (02/23/25 09:53) * Cardiology Consult (02/23/25 12:31) Rt Low Ext Art Duplex (02/23/25 13:34) Vital Signs Date Time Temp Pulse Resp B/P (MAP) Pulse Ox O2 Delivery O2 Flow Rate FiO2 02/23/25 14:00 94 23 90/39 (56) 97 02/23/25 12:10 90 02/23/25 12:00 89 22 99/70 (80) 96 02/23/25 11:23 86 02/23/25 09:38 86 19 93/54 02/23/25 09:02 94 25 104/64 02/23/25 08:55 90 02/23/25 08:15 93 02/23/25 08:13 98.3 93 22 105/66 (79) 97 98.3 02/23/25 08:13 93 22 97 Nasal Cannula* 2 28 02/23/25 07:57 97.8 94 18 107/67 100 97.8 02/23/25 07:53 91 Laboratory Tests Test 02/23/25 08:41 White Blood Count 6.4 10^3/uL (4.4-10.8) Medications Medications Dose Ordered Sig/Nelson Route Start Time Stop Time Status Last Admin Dose Admin Aspirin 325 mg ONCE ONCE PO 02/23/25 10:00 02/23/25 10:01 DC 02/23/25 10:28 325 MG Hydromorphone HCl 1 mg ONCE ONCE IV 02/23/25 08:45 02/23/25 08:46 DC 02/23/25 09:02 1 MG Ondansetron HCl 4 mg ONCE ONCE IV 02/23/25 08:45 02/23/25 08:46 DC 02/23/25 09:01 4 MG Assessment/Plan Assessment/Plan Ischemic cardiomyopathy NSTEMI Coronary artery disease status post stents in the past on aspirin and Plavix Mid RCA thrombus Peripheral arterial disease Acute on chronic systolic heart failure with reduced ejection fraction Status post AICD Hypertension Dyslipidemia COPD Acute on chronic hypoxic respiratory failure Severe pulmonary hypertension Type 2 diabetes Active smoker Morbid obesity Thyroid disease Recent CVA 1 month ago status post feeding tube placement PLAN: Admit to tele Eliquis Brilinta Lipitor Lasix Cardiology consult Vascular consult GI consult to remove the feeding tube Plan discussed with: Patient Date of Service: Feb 23, 2025 Billing Provider: KEILA AUSTIN MD Common Visit Codes: NOT BILLABLE KEILA AUSTIN MD Feb 23, 2025 15:48
[2025-02-23] MEDS: FUROSEMIDE 20 MG TAB PO ONE (16:08)
[2025-02-23] MEDS: TICAGRELOR 90 MG TAB PO ONE (16:09)
--- NOTE | 2025-02-23 16:41 | DVHCONRES ---
Date Seen: Feb 23, 2025 Resident Creating Document: LANE JAMISON RESIDENT History of Present Illness This is a 70-year-old male who was transferred from [facility] for evaluation of NSTEMI and right leg pain. Patient was seen in [place] on 02/22 for right leg pain for the past 3 days, reports that pain is sharp, located in the right feet, worsens with exertion or weight-bearing, constant, nonradiating, associated with numbness and tingling. Denies any thigh pain or posterior buttock pain which is radiating down. Also denies fever, chills, nausea, vomiting, lightheadedness, dizziness, chest pain, shortness of breaths, abdominal or urinary symptoms at this time. Also reports that his PEG tube is draining purulent substance for the past week, and abdomen is tender to touch. At [facility], patient's lactic acid was 2.9, BNP 8 8 7, troponin 0.14(normal value 0.02-0.04) Consulted for elevated troponin Past medical history: Congestive heart failure-unspecified, diabetes mellitus type 2, stroke 1 month back, hyperlipidemia, COPD, hypertension, hypothyroidism, dyslipidemia Past surgical history: G-tube placement, ICD placement, history of FANY Home medications: Aspirin 81, carvedilol 3.125, clopidogrel 75, furosemide 20, Lipitor, levothyroxine 25, insulin, metformin, Trelegy ipratropium albuterol Social history: Smokes 4 cigarettes a day, has been smoking a pack a day for the past 50 years, drinks socially, no drug use. Family in [place]. Lives in [place]. No next of kin. Patient seen and examined. G-tube is draining purulent substance. Right lower extremity pulses are absent. Family History: Cerebrovascular accident (CVA) G8 MOTHER Diabetes mellitus G8 MOTHER G8 FATHER Hypertension G8 MOTHER G8 FATHER Allergies: Coded Allergies: NO KNOWN ALLERGIES (Unverified , 02/12/25) Home Meds Reported Medications Insulin Glargine (Basaglar Kwikpen) 100 Unit/Ml Inj, UNITS SC UD for 75 Days, #30 02/24/25 Levothyroxine Sodium (Levothyroxine Sodium) 25 Mcg Tab, 1 TAB PO QAM for 90 Days, #90 02/24/25 Cholecalciferol (VITAMIN D3) 5,000 Unit Cap, 1 CAP PO DAILY for 90 Days, #90 02/24/25 Insulin Lispro (Insulin Lispro Kwikpen) 100 Unit/Ml Inj, 15 UNITS SC TIDWM for 31 Days, #15 02/24/25 Tamsulosin Hcl (Tamsulosin Hcl) 0.4 Mg Cap, 1 CAP PO DAILY for 90 Days, #90 02/24/25 Clopidogrel Bisulfate (Plavix) 75 Mg Tab, 1 TAB PO DAILY for 90 Days, #90 02/24/25 Aspirin (Aspir-Low) 81 Mg Tab, 81 MG PO DAILY for 30 Days, MG 02/24/25 Current Medications Current Medications Medications (Trade) Dose Ordered Sig/Nelson Route PRN Reason Start Time Stop Time Status Last Admin Nitroglycerin (Ntrostat Sublingual) 0.4 mg Q5MINP PRN SL FOR CHEST PAIN 02/23/25 15:30 Morphine Sulfate 2 mg Q30M PRN IV FOR CHEST PAIN 02/23/25 15:30 02/23/25 15:36 DC Hydromorphone HCl (Dilaudid Injection) 0.25 mg Q4HPRN PRN IV SEVERE PAIN (7-10 PAIN SCALE) 02/23/25 16:00 Apixaban (Eliquis) 5 mg BID PO 02/23/25 22:00 Ticagrelor (Brilinta) 90 mg BID PO 02/24/25 10:00 Furosemide (Lasix Tablet) 40 mg DAILY PO 02/24/25 10:00 Atorvastatin Calcium (Lipitor) 80 mg HS PO 02/23/25 22:00 Acetaminophen (Tylenol Tablet) 650 mg Q6HP PRN PO MILD PAIN (1-3 PAIN SCALE) 02/23/25 15:45 Ondansetron HCl (Zofran) 4 mg Q4HPRN PRN IV NAUSEA / VOMITING 02/23/25 15:45 Diagnostic Test (Pha) (Accu-Chek Comfort Curve T) 1 strip ACHS 02/23/25 17:00 Insulin Human Regular (InsuLIN R) ACHS SC 02/23/25 17:00 Dextrose 50 ml UD PRN IV Blood Sugar LESS THAN 60 02/23/25 15:45 Review of Systems Eyes: No Pain, No Vision change, No Conjunctivae inflammation, No Eyelid inflammation, No Other, No Redness ENT: No Ear pain, No Ear discharge, No Nose pain, No Nose discharge, No Nose congestion, No Mouth pain, No Mouth swelling, No Throat pain, No Throat swelling, No Other Cardiovascular: No Chest Pain, No Palpitations, No Orthopnea, No PND, No Edema, No Lt Headedness, No Other Respiratory: No Cough, No Dry, No Shortness of breath, No SOB with exertion, No Wheezing, No Hemoptysis, No Pleuritic Pain, No Sputum, No Other Gastrointestinal: No Nausea, No Vomiting, No Abdominal Pain, No Diarrhea, No Constipation, No Melena, No Hematochezia, No Other Genitourinary: No Dysuria, No Frequency, No Incontinence, No Hematuria, No Retention, No Other Musculoskeletal: Reports right lower extremity pain, No neck pain, No shoulder pain, No arm pain, No back pain, No hand pain, No leg pain, No foot pain Skin: No Rash, No Lesions, No Jaundice, No Bruising, No Other Vital Signs Vital Signs Date Time Temp Pulse Resp B/P (MAP) Pulse Ox O2 Delivery O2 Flow Rate FiO2 02/23/25 14:00 94 23 90/39 (56) 97 02/23/25 08:13 98.3 98.3 02/23/25 08:13 Nasal Cannula* 2 28 Physical Exam Elderly male lying in the bed comfortably, no acute distress General: Well-built, afebrile, palor, mucosae are moist Cardiovascular: Regular S1 and S2. No murmurs, gallops or rubs. No JVD elevation. No pedal edema Respiratory: Decreased bilateral air entry, wheezing or crackles heard Abdomen: Soft, tender, G-tube draining purulent substance, nondistended, normoactive bowel sounds, no rebound tenderness, no organomegaly, no masses Genitourinary: Deferred MSK/skin: Mobilizes 4 limbs. Skin is dry and warm right lower extremity is colder compared to the left but intact sensation. Right lower extremity is also tender. Right dorsalis pedal pulse absent, right tibialis posterior pulse absent, left- sided pulses also feeble. Weak femoral pulses b/l Neurological: No motor, no sensitive deficits, normal speech. Pupils are iso coric and reactive. Psych/Mental Status: A/Ox3 Labs/Diagnostic Data Labs Test 02/23/25 12:36 02/23/25 10:21 02/23/25 08:41 Range/Units Troponin I High Sensitivity 272 *H </=54 ng/L Urine Color Light-yellow Yellow Urine Clarity Clear Clear Urine pH 6.0 5.0-9.0 Urine Specific [place] > 1.050 H 1.001-1.035 Urine Protein Negative Negative Urine Ketones 1+ H Negative Urine Blood Negative Negative /uL Urine Nitrite Negative Negative Urine Bilirubin Negative Negative Urine Urobilinogen Normal Negative mg/dL Urine Leukocyte Esterase Negative Negative /uL Urine RBC 1 0 - 3 /hpf Urine Microscopic WBC 1 0-3 /HPF Urine Squamous Epithelial Cells Few <5 /hpf Urine Bacteria None seen None Seen /hpf Urine Mucus Few None Seen Urine Glucose Normal Normal mg/dL White Blood Count 6.4 4.4-10.8 10^3/uL Red Blood Count 3.52 L 4.5-5.90 10^6/uL Hemoglobin 10.3 L 13.5-17.5 g/dL Hematocrit 32.8 L 41.0-53.0 % Mean Corpuscular Volume 93.2 80.0-100.0 fL Mean Corpuscular Hemoglobin 29.2 28.0-32.0 pg Mean Corpuscular Hemoglobin Concent 31.4 L 32.0-36.0 g/dL Red Cell Distribution Width 17.7 H 11.8-14.3 % Platelet Count 269 140-450 10^3/uL Mean Platelet Volume 6.8 L 6.9-10.8 fL Neutrophils (%) (Auto) 67.6 37.0-80.0 % Lymphocytes (%) (Auto) 17.6 10.0-50.0 % Monocytes (%) (Auto) 6.4 0.0-12.0 % Eosinophils (%) (Auto) 7.6 H 0.0-7.0 % Basophils (%) (Auto) 0.8 0.0-2.0 % Neutrophils # (Auto) 4.3 1.6-8.6 10 ^3/uL Lymphocytes # (Auto) 1.1 0.4-5.4 10 ^3/uL Monocytes # (Auto) 0.4 0-1.3 10 ^3/uL Eosinophils # (Auto) 0.5 0-0.8 10 ^3/uL Basophils # (Auto) 0.1 0-0.2 10 ^3/uL Nucleated Red Blood Cells 0.1 % D-Dimer, Quantitative 1.78 H 0.0-0.49 mg/L FEU Sodium Level 142 136-145 mmol/L Potassium Level 4.0 3.5-5.1 mmol/L Chloride Level 109 H 98-107 mmol/L Carbon Dioxide Level 22 20-31 mmol/L Anion Gap 11 5-15 Blood Urea Nitrogen 8 L 9-23 mg/dL Creatinine 0.87 0.700-1.30 mg/dL Glomerular Filtration Rate Calc 92 >90 mL/min BUN/Creatinine Ratio 9.2 L 10.0-20.0 Serum Glucose 114 H 74-106 mg/dL Calcium Level 8.0 L 8.7-10.4 mg/dL Assessment Elevated troponin likely NSTEMI type 1 Occluded LAD Occluded circumflex RCA Thrombus CAD status post multiple PTCAs Right Lower extremity pain secondary to Likely right-sided Peripheral arterial disease Pulmonary Edema Chronic systolic CHF with AICD Angela-NYHA class 3 Seizure dilated ischemic cardiomyopathy Pulmonary hypertension, severe degree Anemia-normocytic History of stroke 1 month back Dyslipidemia Hypertension Diabetes Mellitus type 2-A1c unknown Hypothyroidism Tobacco dependence Lower extremity duplex shows There is peripheral vascular disease throughout the right lower extremity with monophasic waveform. No pulse was noted in the posterior or anterior tibial arteries. Pulse in the dorsalis pedis is measured at 11 cm/sec and was seen to be monophasic. There is no evidence for peripheral vascular insufficiency in the left lower extremity. ECHO 02/12/25 : The patient underwent a transthoracic echocardiogram which revealed an EF of 10%, RVSP 75-80 mmHg. Plan/Recommendation Troponins have been downtrending from the previous visit 02/12 9394-02/23 [id number], given the recent [facility] and overall poor prognosis, no acute cardiology intervention indicated for elevated troponins. Follow up with vascular surgeon for PAD Patient underwent coronary angiogram with left heart catheterization on 02/12/2025 which revealed an occluded LAD, occluded circumflex, filling defect in mid RCA with thrombus. Patient was advised Brilinta and DOAC (Eliquis), and to initiate colchicine patient left AMA. Overall prognosis is poor. Continue Lovenox 1 milligram/kg b.i.d. for now, switched to Eliquis on discharge Continue lipid lowering agent Recommend guideline directed medical therapy, titrate as the blood pressure permits Strict I&Os, daily weights, maintain fluid restriction, low-sodium diet Thank you for consulting us. Plan discussed with patient in which all qs answered Case discussed with Dr Oconnor PT SEEN AND EXAMINED WITH CV TEAM AGREE WITH RESIDENT ASSESSMENT AND PLAN pt has severe cad ,end stage HF, severe pad recommend hospice his prognosis is very very poor Plan discussed with: Patient LANE JAMISON RESIDENT Feb 23, 2025 16:40 NAVEED OCONNOR MD Feb 24, 2025 17:32
[2025-02-23] MEDS: ACCU-CHEK COMFORT CURVE STRIP VI SCH (17:10)
[2025-02-23] MEDS: InsuLIN REG 1unit/0.01ml Soln (100units/ml) SC SCH (17:11)
[2025-02-23] MEDS: IOHEXOL 350 MG/ML 100ML IJ ONE ×2 (19:06→22:00)
[2025-02-23 19:49] VITALS: PULSE 109; RESP 30; O2SAT 94
[2025-02-23] MEDS: ACETAMINOPHEN 325 MG TAB PO PRN (20:15)
--- NOTE | 2025-02-23 20:30 | DVHCONRES ---
Date Seen: Feb 23, 2025 Resident Creating Document: TRAVIS SANCHEZ Jr., MD Referring Physician er Reason for Consultation leg pain History of Present Illness 70-year-old male who was transferred from [facility] for evaluation of NSTEMI and right leg pain. Patient was seen in [place] on 02/22 for right leg pain for the past 3 days, reports that pain is sharp, located in the right feet, worsens with exertion or weight-bearing, constant, nonradiating, associated with numbness and tingling. Denies any thigh pain or posterior buttock pain which is radiating down. Also denies fever, chills, nausea, vomiting, lightheadedness, dizziness, chest pain, shortness of breaths, abdominal or urinary symptoms at this time. Also reports that his PEG tube is draining purulent substance for the past week, and abdomen is tender to touch. The patient is status right leg pain began after a fall while getting dressed in the morning. Past Medical History Severe coronary artery disease, Congestive heart failure-unspecified, diabetes mellitus type 2, stroke 1 month back, hyperlipidemia, COPD, hypertension, hypothyroidism, dyslipidemia Past Surgical History G-tube, AICD Family History: Cerebrovascular accident (CVA) G8 MOTHER Diabetes mellitus G8 MOTHER G8 FATHER Hypertension G8 MOTHER G8 FATHER Social History Smoker 50 year pack year history Allergies: Coded Allergies: NO KNOWN ALLERGIES (Unverified , 02/12/25) Current Medications Current Medications Medications (Trade) Dose Ordered Sig/Nelson Route PRN Reason Start Time Stop Time Status Last Admin Nitroglycerin (Ntrostat Sublingual) 0.4 mg Q5MINP PRN SL FOR CHEST PAIN 02/23/25 15:30 Morphine Sulfate 2 mg Q30M PRN IV FOR CHEST PAIN 02/23/25 15:30 02/23/25 15:36 DC Hydromorphone HCl (Dilaudid Injection) 0.25 mg Q4HPRN PRN IV SEVERE PAIN (7-10 PAIN SCALE) 02/23/25 16:00 Apixaban (Eliquis) 5 mg BID PO 02/23/25 22:00 02/23/25 17:17 DC Ticagrelor (Brilinta) 90 mg BID PO 02/24/25 10:00 Furosemide (Lasix Tablet) 40 mg DAILY PO 02/24/25 10:00 Atorvastatin Calcium (Lipitor) 80 mg HS PO 02/23/25 22:00 Acetaminophen (Tylenol Tablet) 650 mg Q6HP PRN PO MILD PAIN (1-3 PAIN SCALE) 02/23/25 15:45 02/23/25 20:15 Ondansetron HCl (Zofran) 4 mg Q4HPRN PRN IV NAUSEA / VOMITING 02/23/25 15:45 Diagnostic Test (Pha) (Accu-Chek Comfort Curve T) 1 strip ACHS 02/23/25 17:00 02/23/25 17:10 Insulin Human Regular (InsuLIN R) ACHS SC 02/23/25 17:00 02/23/25 17:11 Dextrose 50 ml UD PRN IV Blood Sugar LESS THAN 60 02/23/25 15:45 Enoxaparin Sodium (Lovenox) 90 mg Q12HR SC 02/23/25 22:00 Review of Systems All systems reviewed otherwise negative of the once in the HPI. Vital Signs Vital Signs Date Time Temp Pulse Resp B/P (MAP) Pulse Ox O2 Delivery O2 Flow Rate FiO2 02/23/25 19:49 109 30 94 Nasal Cannula* 3 32 02/23/25 19:35 98.6 103/63 (76) 98.6 Physical Exam Head eyes ears nose and throat exam eyes nonicteric conjunctiva is pink neck was supple no JVD no lymphadenopathy no carotid bruits the lungs are clear to auscultation heart was regular rate and rhythm abdomen is soft nontender with no pulsatile abdominal masses or bruits lower extremity was weakly palpable femoral pulses and nonpalpable pedal pulses bilaterally. He has ecchymosis in the right groin status post cardiac catheterization. She has motor and sensory are grossly intact. He has generalized pain in his right leg with palpation. Labs/Diagnostic Data Labs Test 02/23/25 12:36 02/23/25 10:21 02/23/25 08:41 Range/Units Troponin I High Sensitivity 272 *H </=54 ng/L Urine Color Light-yellow Yellow Urine Clarity Clear Clear Urine pH 6.0 5.0-9.0 Urine Specific [place] > 1.050 H 1.001-1.035 Urine Protein Negative Negative Urine Ketones 1+ H Negative Urine Blood Negative Negative /uL Urine Nitrite Negative Negative Urine Bilirubin Negative Negative Urine Urobilinogen Normal Negative mg/dL Urine Leukocyte Esterase Negative Negative /uL Urine RBC 1 0 - 3 /hpf Urine Microscopic WBC 1 0-3 /HPF Urine Squamous Epithelial Cells Few <5 /hpf Urine Bacteria None seen None Seen /hpf Urine Mucus Few None Seen Urine Glucose Normal Normal mg/dL White Blood Count 6.4 4.4-10.8 10^3/uL Red Blood Count 3.52 L 4.5-5.90 10^6/uL Hemoglobin 10.3 L 13.5-17.5 g/dL Hematocrit 32.8 L 41.0-53.0 % Mean Corpuscular Volume 93.2 80.0-100.0 fL Mean Corpuscular Hemoglobin 29.2 28.0-32.0 pg Mean Corpuscular Hemoglobin Concent 31.4 L 32.0-36.0 g/dL Red Cell Distribution Width 17.7 H 11.8-14.3 % Platelet Count 269 140-450 10^3/uL Mean Platelet Volume 6.8 L 6.9-10.8 fL Neutrophils (%) (Auto) 67.6 37.0-80.0 % Lymphocytes (%) (Auto) 17.6 10.0-50.0 % Monocytes (%) (Auto) 6.4 0.0-12.0 % Eosinophils (%) (Auto) 7.6 H 0.0-7.0 % Basophils (%) (Auto) 0.8 0.0-2.0 % Neutrophils # (Auto) 4.3 1.6-8.6 10 ^3/uL Lymphocytes # (Auto) 1.1 0.4-5.4 10 ^3/uL Monocytes # (Auto) 0.4 0-1.3 10 ^3/uL Eosinophils # (Auto) 0.5 0-0.8 10 ^3/uL Basophils # (Auto) 0.1 0-0.2 10 ^3/uL Nucleated Red Blood Cells 0.1 % D-Dimer, Quantitative 1.78 H 0.0-0.49 mg/L FEU Sodium Level 142 136-145 mmol/L Potassium Level 4.0 3.5-5.1 mmol/L Chloride Level 109 H 98-107 mmol/L Carbon Dioxide Level 22 20-31 mmol/L Anion Gap 11 5-15 Blood Urea Nitrogen 8 L 9-23 mg/dL Creatinine 0.87 0.700-1.30 mg/dL Glomerular Filtration Rate Calc 92 >90 mL/min BUN/Creatinine Ratio 9.2 L 10.0-20.0 Serum Glucose 114 H 74-106 mg/dL Calcium Level 8.0 L 8.7-10.4 mg/dL RIGHT Lower Extremity Arterial Duplex Date: 02/23/2025 02:18 PM Clinical History: weak pulses Comparison: None Technique: Duplex Doppler evaluation including color Doppler and spectral/pulsed waveform analysis of the lower extremity arteries was performed. Finding: RIGHT: Peak systolic velocities are as follows: PATIENT LIAISON 63 cm/s MONOPHASIC WAVEFORM Deep femoral 110 cm/s monophasic waveform SFA proximal 33 cm/s monophasic waveform SFA mid-portion 24 cm/s monophasic waveform SFA distal 22 cm/s monophasic waveform Popliteal 26 cm/s monophasic waveform Posterior tibial 0 cm/s Anterior tibial 0 cm/s Dorsalis pedis 11 cm/s monophasic waveform The waveforms are monophasic waveform throughout. REFERENCE VALUES, [facility]) vascular Imaging Lab Criteria: Peak systolic velocity ranges (in cm/sec) are as follows: <150 cm/s - <20 % stenosis 150-200 cm/s - 20-49% stenosis 200-300 cm/s - 50-75% stenosis >300 cm/s -> 75% stenosis IMPRESSION: 1. There is peripheral vascular disease throughout the right lower extremity with monophasic waveform. 2. No pulse was noted in the posterior or anterior tibial arteries. 3. Pulse in the dorsalis pedis is measured at 11 cm/sec and was seen to be monophasic 4. There is no evidence for peripheral vascular insufficiency in the left lower extremity. Assessment Right leg pain with severe coronary disease probable severe peripheral vascular disease and a recent fall in the right leg. Arterial duplexes of the right leg demonstrated monophasic waveforms throughout. Recommend CT a with runoff of the lower extremities. Plan/Recommendation Right leg pain with severe coronary disease probable severe peripheral vascular disease and a recent fall in the right leg. Arterial duplexes of the right leg demonstrated monophasic waveforms throughout. Recommend CT a with runoff of the lower extremities. Plan discussed with: Patient TRAVIS SANCHEZ Jr., MD Feb 23, 2025 20:30
[2025-02-23] MEDS: LORazepam 2MG/ML-1ML VIAL IV ONE (21:29)
[2025-02-23] MEDS ORDERED: APIXABAN 5 MG TAB PO SCH (22:00)
[2025-02-23 22:18] VITALS: BP 126/76; PULSE 98; RESP 22; TEMP 98.1; O2SAT 97
[2025-02-23 22:30] VITALS: BP 116/81; PULSE 60; PULSE 96; RESP 20; TEMP 98.3; O2SAT 98
[2025-02-23] MEDS: ATORVASTATIN 20 MG TAB PO SCH (23:34)
[2025-02-23] MEDS: ENOXAPARIN SOD 100 MG/1 ML SYRINGE SC SCH (23:42)
[2025-02-24] VITALS (9 sets, daily range): BP systolic 101–116; BP diastolic 65–81; PULSE 86–96; RESP 18–20; TEMP 97.5–98.6; O2SAT 97–100
--- NOTE | 2025-02-24 01:19 | DVH ---
Procedure: CT CT ANGIO ABD AORTA W RUN OFF Reason for study/Clinical History: right leg pain and numbness Comparison Study: None CTA LOWER EXTREMITY RUNOFF WITH CONTRAST DATED 02/23/2025 09:47 PM Radiation Dose Information: CT Dose: CTDI volume is 38.48 mGy. Dose-length product is 1780.47 mGy*cm TECHNIQUE: 3D angiographic acquisitions of the abdomen and lower extremity was obtained during the intravenous administration of contrast without immediate adverse effect. Post processing, including maximum intensity projection, was performed images were reviewed on a PACS workstation. 3D postprocessing images were performed on a dedicated workstation and images were reviewed and inter preted for reporting. FINDINGS: Lungs: Incompletely assessed bilateral pleural effusions with adjacent opacity. Scattered ground-glas s opacities are present within the visualized lung bases. Liver: Unremarkable. Spleen: Unremarkable. Pancreas: Unremarkable. Gallbladder: Hyperdensity is seen within the inferior aspect of the gallbladder which may reflect sarah arious excretion of contrast, stones and sludge cannot be excluded. Adrenals: Unremarkable. Kidneys: Right renal cyst. No hydronephrosis. Pelvic Viscera: Unremarkable. Retroperitoneum: Unremarkable. Bowel: No bowel obstruction. A gastric tube is noted. Musculoskeletal: Unremarkable. Soft tissues: Unremarkable. Vascular: There are severe atherosclerotic calcifications of the aortoiliac branches. Right common , external and internal iliac arteries demonstrate severe atherosclerotic calcification. Right common femoral, profunda femoral, superficial femoral and popliteal arteries demonstrate multi focal severe atherosclerotic calcification with at least moderate multifocal stenosis. Right anterior Tibial (CATARINO), Tibioperoneal Trunk, peroneal, posterior Tibial (BUSHING PRESS OPERATOR) arteries demonstra debbi severe atherosclerotic calcifications with multifocal stenoses and diminutive opacification of th e distal branches. Left common , external and internal iliac arteries demonstrate severe atherosclerotic calcification. There is near-complete occlusion of the left proximal external iliac artery. Left common femoral, pro yamel femoral, superficial femoral and popliteal arteries demonstrate multifocal severe atherosclerot ic calcification with multifocal severe stenoses. Left anterior Tibial (CATARINO), Tibioperoneal Trunk, peroneal, posterior Tibial (BUSHING PRESS OPERATOR) arteries demonstrat es severe atherosclerotic calcifications with multifocal stenoses and diminutive opacification of the distal branches. IMPRESSION: 1. Severe atherosclerotic calcification of the aortoiliac branches with near-complete occlusion of th e proximal left external iliac artery. Severe multifocal stenoses of the arteries of the lower extrem ities. 2. Incompletely assessed bilateral pleural effusions with adjacent opacity. Scattered pulmonary opac ities may reflect infectious / inflammatory process in the appropriate clinical setting. 3. Additional findings as detailed. All CT scans at this medical facility are performed using dose modulation techniques as appropriate t o a performed exam including the following: Automated exposure control was utilized; adjustment of th e MA and/or KV according to patient size; and use of iterative reconstruction technique.
[2025-02-24] MEDS ORDERED: ASPI-543 PO (01:59)
[2025-02-24 07:09] LABS: Cholesterol 179 mg/dL (< 200); HDL Cholesterol 40 mg/dL (40-59)
[2025-02-24 07:16] LABS: Triglycerides 158 mg/dL (< 150)
[2025-02-24] MEDS: TICAGRELOR 90 MG TAB PO SCH (09:43)
[2025-02-24] MEDS: FUROSEMIDE 20 MG TAB PO SCH (09:44)
--- NOTE | 2025-02-24 10:12 | DVHPN2 ---
Subjective No new complaints He is still complaining of the right leg pain He was seen by vascular surgery and had an aorta runoff angiogram which showed severe atherosclerotic calcification of the aorta iliac branches with near complete occlusion of the proximal left external iliac artery with severe multifocal stenosis of the arteries of the lower extremities Changes from previous H/P or p: Changes Objective Vitals Vital Signs Date Time Temp Pulse Resp B/P (MAP) Pulse Ox O2 Delivery O2 Flow Rate FiO2 02/24/25 09:44 166/79 02/24/25 09:00 98.1 92 18 97 98.1 02/23/25 22:30 Nasal Cannula* 3 32 Intake/Output Intake and Output 02/24/25 07:00 Intake Total 0 ml Output Total 1100 ml Balance -1100 ml Intake Oral 0 ml Output Urine Total 1100 ml Medications Current Medications Medications Dose Ordered Sig/Nelson Route Start Time Stop Time Status Last Admin Dose Admin Nitroglycerin 0.4 mg Q5MINP PRN SL 02/23/25 15:30 Hydromorphone HCl 0.25 mg Q4HPRN PRN IV 02/23/25 16:00 Ticagrelor 90 mg BID PO 02/24/25 10:00 02/24/25 09:43 90 MG Furosemide 40 mg DAILY PO 02/24/25 10:00 02/24/25 09:44 40 MG Atorvastatin Calcium 80 mg HS PO 02/23/25 22:00 02/23/25 23:34 80 MG Acetaminophen 650 mg Q6HP PRN PO 02/23/25 15:45 02/23/25 20:15 650 MG Ondansetron HCl 4 mg Q4HPRN PRN IV 02/23/25 15:45 Diagnostic Test (Pha) 1 strip ACHS 02/23/25 17:00 02/24/25 06:18 1 STRIP Insulin Human Regular ACHS SC 02/23/25 17:00 02/23/25 22:00 2 UNITS Dextrose 50 ml UD PRN IV 02/23/25 15:45 Enoxaparin Sodium 90 mg Q12HR SC 02/23/25 22:00 02/24/25 09:44 90 MG Laboratory Results Laboratory Tests 02/23/25 08:41 Lipid panel Test 02/24/25 06:09 Cholesterol Level 179 mg/dL (< 200) HDL Cholesterol 40 mg/dL (40-59) Triglycerides Level 158 mg/dL (< 150) H HgA1c, TSH Test 02/24/25 06:09 Thyroid Stimulating Hormone (TSH) 2.59 uIU/mL (0.55-4.78) Urinalysis Test 02/23/25 10:21 Urine Color Light-yellow (Yellow) Urine Clarity Clear (Clear) Urine pH 6.0 (5.0-9.0) Urine Specific [place] > 1.050 (1.001-1.035) Urine Protein Negative (Negative) Urine Ketones 1+ (Negative) H Urine Blood Negative /uL (Negative) Urine Nitrite Negative (Negative) Urine Bilirubin Negative (Negative) Urine Urobilinogen Normal mg/dL (Negative) Urine Leukocyte Esterase Negative /uL (Negative) Urine RBC 1 /hpf (0 - 3) Urine Microscopic WBC 1 /HPF (0-3) Urine Squamous Epithelial Cells Few /hpf (<5) Urine Bacteria None seen /hpf (None Seen) Urine Mucus Few (None Seen) Urine Glucose Normal mg/dL (Normal) Assessment/Plan Assessment/Plan Ischemic cardiomyopathy NSTEMI Coronary artery disease status post stents in the past on aspirin and Plavix Mid RCA thrombus Peripheral arterial disease Acute on chronic systolic heart failure with reduced ejection fraction Status post AICD Hypertension Dyslipidemia COPD Acute on chronic hypoxic respiratory failure Severe pulmonary hypertension Type 2 diabetes Active smoker Morbid obesity Thyroid disease Recent CVA 1 month ago status post feeding tube placement PLAN: Admit to [facility] Brilinta Lipitor Lasix Cardiology consult Vascular consult GI consult to remove the feeding tube 02/24/2025: Severe right lower extremity peripheral arterial disease: Vascular surgery is on board Ischemic cardiomyopathy NSTEMI Coronary artery disease The patient is receiving Lovenox for now along with Brilinta Vascular surgery to decide on the next step for his peripheral arterial disease Cardiology is also following, stable, continue Brilinta Monitor closely Plan discussed with: Patient My Orders Orders - KEILA AUSTIN MD Procedure Category Date Status Time Admit ADMIT 02/23/25 Transmitted 15:24 Nitroglycerin PHA 02/23/25 In Process Sublingual (Ntrostat 15:30 Stat Ekg For Chest BEVERLY 02/23/25 In Process Pain 15:24 Notify Of Changes BEVERLY 02/23/25 In Process From Base 15:24 Co Founder And Cto For BEVERLY 02/23/25 In Process 24 Hours 15:24 Emergency Dysrhythmia BEVERLY 02/23/25 In Process Protocol 15:24 Rhythm Strips Once BEVERLY 02/23/25 In Process Every Shift 15:24 Oxygen By Nasal RT 02/23/25 Transmitted Cannula 15:24 Consult CONS 02/23/25 Transmitted Vascular/Endovascular 15:38 Furosemide Tablet PHA 02/24/25 In Process (Lasix Tablet) 10:00 Atorvastatin (Lipitor) PHA 02/23/25 In Process 22:00 Acetaminophen Tablet PHA 02/23/25 In Process (Tylenol Tablet) 15:45 Ondansetron Hcl PHA 02/23/25 In Process (Zofran) 15:45 Glucose Blood PHA 02/23/25 In Process (Accu-Chek Comfort 17:00 Insulin R (Human) PHA 02/23/25 In Process (Insulin R) 17:00 Dextrose 50% Syringe PHA 02/23/25 In Process 15:45 Consistent DIET 02/23/25 Transmitted Carb(Ccho)Diabetes Dinner * Gi [facility] Drama Teacher CONS 02/23/25 Transmitted 15:47 Ticagrelor (Brilinta) PHA 02/24/25 In Process 10:00 Hydromorphone Hcl Inj PHA 02/23/25 In Process (Dilaudid Injectio 16:00 Education - Smoking BEVERLY 02/24/25 In Process Cessation 01:50 * Smoking Cessation CONS 02/24/25 Transmitted Consult 01:50 Mrsa Screen NATHALY 02/24/25 Uncollected 01:50 Date of Service: Feb 24, 2025 Billing Provider: KEILA AUSTIN MD Common Visit Codes: NOT BILLABLE KEILA AUSTIN MD Feb 24, 2025 10:12
[2025-02-24] MEDS: HYDROMORPHONE HCL 1 MG/ML INJ IV PRN (13:57)
--- NOTE | 2025-02-24 13:57 | DVHINCON2 ---
GI Consult Consult Note GI consult note Date of Consultation: 02/24/2025 Chief Complaint: Removal of feeding tube Referring Physician: Dr. Persaud H&P: 70-year-old male with past medical history of CAD, ischemic cardiomyopathy, ejection fraction 10, diabetes, hypertension was hospitalized at [facility] about a month ago diagnosed with stroke and required intubation and G-tube was placed at that time. Patient admits to able to eat a regular diet at this time and has not been using his PEG tube for feeding. And has noticed slight discharge around the PEG tube. Denies abdominal pain. No nausea or vomiting. No melena or red blood in stool. Patient is complaining of leg pain and is being followed by vascular surgery. Patient is also being seen by Cardiology and is on Lovenox and Brilinta Patient is also complaining of shortness of breath Past Medical History: CAD, CHF, HTN, VT, pulmonary hypertension, CVA, diabetes Past Surgical History: EGD with PEG placement, status post angiogram 02/12/2025 Social History: + smoking, denies drinking ETOH and use of illegal drugs. Family History: Noncontributory Review of Systems: Constitutional: no fever, chill, weight loss HEENT: no eye pain, no hearing loss, no oral lesion, no scleral icterus Heart: no chest pain, no chest pressure Lung: Shortness of breath Abdomen: see HPI Musculoskeletal: Leg pain Physical exam: General: NAD, AAOX3 Chest: lung goodrich clear to auscultation Heart: RRR, no murmur Abdomen: non-distended, no tenderness to palpation, +BS, PEG tube in place Labs: Labs Test 02/24/25 12:13 02/24/25 06:09 02/23/25 12:36 02/23/25 10:21 Range/Units POC Glucose 182 H 70-106 mg/dl Triglycerides Level 158 H < 150 mg/dL Cholesterol Level 179 < 200 mg/dL LDL Cholesterol 121 H < 100 mg/dL HDL Cholesterol 40 40-59 mg/dL Thyroid Stimulating Hormone (TSH) 2.59 0.55-4.78 uIU/mL Troponin I High Sensitivity 272 *H </=54 ng/L Urine Color Light-yellow Yellow Urine Clarity Clear Clear Urine pH 6.0 5.0-9.0 Urine Specific [place] > 1.050 H 1.001-1.035 Urine Protein Negative Negative Urine Ketones 1+ H Negative Urine Blood Negative Negative /uL Urine Nitrite Negative Negative Urine Bilirubin Negative Negative Urine Urobilinogen Normal Negative mg/dL Urine Leukocyte Esterase Negative Negative /uL Urine RBC 1 0 - 3 /hpf Urine Microscopic WBC 1 0-3 /HPF Urine Squamous Epithelial Cells Few <5 /hpf Urine Bacteria None seen None Seen /hpf Urine Mucus Few None Seen Urine Glucose Normal Normal mg/dL Test 02/23/25 08:41 Range/Units White Blood Count 6.4 4.4-10.8 10^3/uL Red Blood Count 3.52 L 4.5-5.90 10^6/uL Hemoglobin 10.3 L 13.5-17.5 g/dL Hematocrit 32.8 L 41.0-53.0 % Mean Corpuscular Volume 93.2 80.0-100.0 fL Mean Corpuscular Hemoglobin 29.2 28.0-32.0 pg Mean Corpuscular Hemoglobin Concent 31.4 L 32.0-36.0 g/dL Red Cell Distribution Width 17.7 H 11.8-14.3 % Platelet Count 269 140-450 10^3/uL Mean Platelet Volume 6.8 L 6.9-10.8 fL Neutrophils (%) (Auto) 67.6 37.0-80.0 % Lymphocytes (%) (Auto) 17.6 10.0-50.0 % Monocytes (%) (Auto) 6.4 0.0-12.0 % Eosinophils (%) (Auto) 7.6 H 0.0-7.0 % Basophils (%) (Auto) 0.8 0.0-2.0 % Neutrophils # (Auto) 4.3 1.6-8.6 10 ^3/uL Lymphocytes # (Auto) 1.1 0.4-5.4 10 ^3/uL Monocytes # (Auto) 0.4 0-1.3 10 ^3/uL Eosinophils # (Auto) 0.5 0-0.8 10 ^3/uL Basophils # (Auto) 0.1 0-0.2 10 ^3/uL Nucleated Red Blood Cells 0.1 % D-Dimer, Quantitative 1.78 H 0.0-0.49 mg/L FEU Sodium Level 142 136-145 mmol/L Potassium Level 4.0 3.5-5.1 mmol/L Chloride Level 109 H 98-107 mmol/L Carbon Dioxide Level 22 20-31 mmol/L Anion Gap 11 5-15 Blood Urea Nitrogen 8 L 9-23 mg/dL Creatinine 0.87 0.700-1.30 mg/dL Glomerular Filtration Rate Calc 92 >90 mL/min BUN/Creatinine Ratio 9.2 L 10.0-20.0 Serum Glucose 114 H 74-106 mg/dL Calcium Level 8.0 L 8.7-10.4 mg/dL Imaging: Assessment: Possible infection PEG tube site Status post CVA Ischemic cardiomyopathy CAD on aspirin and Plavix status post stent Plan: Discussed with Dr. Coles IV antibiotics Possible plan for outpatient PEG tube removal when patient is stable from a cardiac point of view We will continue to monitor patient Thank you for this consult Date of Service: Feb 24, 2025 Billing Provider: GLORIA ROBERTS Common Visit Codes: CONSULT ONLY Consultation Codes: [id number] CONSULT <60MIN GLORIA ROBERTS Feb 24, 2025 13:57
--- NOTE | 2025-02-24 17:08 | DVHPN2 ---
Progress Note Date Seen: Feb 24, 2025 Resident Creating Document: LANE [facility] RESIDENT Medical Necessity Reason Pt with a Central, PICC or Fol: No Subjective Review of Systems This is a 70-year-old male who was transferred from [facility] for evaluation of NSTEMI and right leg pain. Patient was seen in [place] on 02/22 for right leg pain for the past 3 days, reports that pain is sharp, located in the right feet, worsens with exertion or weight-bearing, constant, nonradiating, associated with numbness and tingling. Denies any thigh pain or posterior buttock pain which is radiating down. Also denies fever, chills, nausea, vomiting, lightheadedness, dizziness, chest pain, shortness of breaths, abdominal or urinary symptoms at this time. Also reports that his PEG tube is draining purulent substance for the past week, and abdomen is tender to touch. At [facility], patient's lactic acid was 2.9, BNP 8 8 7, troponin 0.14(normal value 0.02-0.04) Consulted for elevated troponin Past medical history: Congestive heart failure-unspecified, diabetes mellitus type 2, stroke 1 month back, hyperlipidemia, COPD, hypertension, hypothyroidism, dyslipidemia Past surgical history: G-tube placement, ICD placement, history of FANY Home medications: Aspirin 81, carvedilol 3.125, clopidogrel 75, furosemide 20, Lipitor, levothyroxine 25, insulin, metformin, Trelegy ipratropium albuterol Social history: Smokes 4 cigarettes a day, has been smoking a pack a day for the past 50 years, drinks socially, no drug use. Family in [place]. Lives in [place]. No next of kin. 02/23-Patient seen and examined. G-tube is draining purulent substance. Right lower extremity pulses are absent. 02/24-patient seen and examined, reports pain in right lower extremity on weight-bearing, tender to touch, bilateral feet are warm absent pulses Eyes: No Pain, No Vision change, No Conjunctivae inflammation, No Eyelid inflammation, No Other, No Redness ENT: No Ear pain, No Ear discharge, No Nose pain, No Nose discharge, No Nose congestion, No Mouth pain, No Mouth swelling, No Throat pain, No Throat swelling, No Other Cardiovascular: No Chest Pain, No Palpitations, No Orthopnea, No PND, No Edema, No Lt Headedness, No Other Respiratory: No Cough, No Dry, No Shortness of breath, No SOB with exertion, No Wheezing, No Hemoptysis, No Pleuritic Pain, No Sputum, No Other Gastrointestinal: No Nausea, No Vomiting, No Abdominal Pain, No Diarrhea, No Constipation, No Melena, No Hematochezia, No Other Genitourinary: No Dysuria, No Frequency, No Incontinence, No Hematuria, No Retention, No Other Musculoskeletal: Reports right lower extremity pain, No neck pain, No shoulder pain, No arm pain, No back pain, No hand pain, No leg pain, No foot pain Skin: No Rash, No Lesions, No Jaundice, No Bruising, No Other Objective vital signs Vital Sign Date Time Temp Pulse Resp B/P (MAP) Pulse Ox O2 Delivery O2 Flow Rate FiO2 02/24/25 16:49 97.5 86 18 106/65 (79) 99 97.5 02/23/25 22:30 Nasal Cannula* 3 32 Total Intake and Output 02/23/25 02/23/25 02/24/25 15:00 23:00 07:00 Intake Total 0 ml Output Total 1100 ml Balance -1100 ml medications Current Medications Medications Dose Ordered Sig/Nelson Route Start Time Stop Time Status Last Admin Dose Admin Nitroglycerin 0.4 mg Q5MINP PRN SL 02/23/25 15:30 Hydromorphone HCl 0.25 mg Q4HPRN PRN IV 02/23/25 16:00 02/24/25 13:57 0.25 MG Ticagrelor 90 mg BID PO 02/24/25 10:00 02/24/25 09:43 90 MG Furosemide 40 mg DAILY PO 02/24/25 10:00 02/24/25 09:44 40 MG Atorvastatin Calcium 80 mg HS PO 02/23/25 22:00 02/23/25 23:34 80 MG Acetaminophen 650 mg Q6HP PRN PO 02/23/25 15:45 02/23/25 20:15 650 MG Ondansetron HCl 4 mg Q4HPRN PRN IV 02/23/25 15:45 Diagnostic Test (Pha) 1 strip ACHS 02/23/25 17:00 02/24/25 11:30 1 STRIP Insulin Human Regular ACHS SC 02/23/25 17:00 02/24/25 12:49 3 UNITS Dextrose 50 ml UD PRN IV 02/23/25 15:45 Enoxaparin Sodium 90 mg Q12HR SC 02/23/25 22:00 02/24/25 09:44 90 MG Examination Elderly male lying in the bed comfortably, no acute distress General: Well-built, afebrile, palor, mucosae are moist Cardiovascular: Regular S1 and S2. No murmurs, gallops or rubs. No JVD elevation. No pedal edema Respiratory: Decreased bilateral air entry, wheezing or crackles heard Abdomen: Soft, tender, G-tube draining purulent substance, nondistended, normoactive bowel sounds, no rebound tenderness, no organomegaly, no masses Genitourinary: Deferred MSK/skin: Mobilizes 4 limbs. Skin is dry and warm right lower extremity is colder compared to the left but intact sensation. Right lower extremity is also tender. Right dorsalis pedal pulse absent, right tibialis posterior pulse absent, left- sided pulses also feeble. Weak femoral pulses b/l Neurological: No motor, no sensitive deficits, normal speech. Pupils are isocoric and reactive. Psych/Mental Status: A/Ox3 laboratory and microbiology Laboratory Tests 02/23/25 08:41 Test 02/23/25 08:41 Range/Units Serum Glucose 114 H 74-106 mg/dL Labs and/or images reviewed: Labs reviewed by me, Image(s) reviewed by me Problem List/Assessment/Plan Problem List/Assessment/Plan Elevated troponin likely NSTEMI type 1 Occluded LAD Occluded circumflex RCA Thrombus CAD status post multiple PTCAs Severe bilateral Peripheral arterial disease Pulmonary Edema Chronic systolic CHF with AICD Lorado-NYHA class 3 Seizure dilated ischemic cardiomyopathy Pulmonary hypertension, severe degree Anemia-normocytic History of stroke 1 month back Dyslipidemia Hypertension Diabetes Mellitus type 2-A1c unknown Hypothyroidism Tobacco dependence Lower extremity duplex shows There is peripheral vascular disease throughout the right lower extremity with monophasic waveform. No pulse was noted in the posterior or anterior tibial arteries. Pulse in the dorsalis pedis is measured at 11 cm/sec and was seen to be monophasic. There is no evidence for peripheral vascular insufficiency in the left lower extremity. ECHO 02/12/25 : The patient underwent a transthoracic echocardiogram which revealed an EF of 10%, RVSP 75-[address] angio shows Severe atherosclerotic calcification of the aortoiliac branches with near-complete occlusion of the proximal left external iliac artery. Severe multifocal stenoses of the arteries of the lower extremities. Plan/Recommendation Troponins have been downtrending from the previous visit 02/12 [id number] Riley, delgado carrington the recent LHC and overall poor prognosis, no acute cardiology intervention indicated for elevated troponins. Follow up with vascular surgeon for PAD Patient underwent coronary angiogram with left heart catheterization on 02/12/2025 which revealed an occluded LAD, occluded circumflex, filling defect in mid RCA with thrombus. Patient was advised Brilinta and DOAC (Eliquis), and to initiate colchicine patient left AMA. Overall prognosis is poor. Continue Lovenox 1 milligram/kg b.i.d. for now, switched to Eliquis 2.5 mg b.i.d. on discharge Continue atorvastatin 80 mg HS daily Started Jardiance 10 mg daily, spironolactone 25 mg daily, hold off on Entresto, started Entresto and beta sd as the blood pressure permits Strict I&Os, daily weights, maintain fluid restriction, low-sodium diet Nicotine patch daily Thank you for consulting us. Plan discussed with patient in which all questions have been answered Case discussed with Dr. Oconnor PT SEEN AND EXAMINED WITH CV TEAM AGREE WITH RESIDENT ASSESSMENT AND PLAN use low dose DOAC brilinta as well but add H2 bglocker consider hospice Plan discussed with: Patient My Orders My Orders Orders - LANE JAMISON Procedure Category Date Status Time Enoxaparin Sodium PHA 02/23/25 In Process (Lovenox) 22:[address] Feb 24, 2025 17:08 NAVEED OCONNOR MD Feb 24, 2025 17:40
[2025-02-24] MEDS: EMPAGLIFLOZIN 10 MG TAB PO SCH (18:56)
[2025-02-24] MEDS: SPIRONOLACTONE 25 MG TAB PO ONE (18:56)
[2025-02-24] MEDS: ENOXAPARIN SOD 80 MG/0.8ML SYRINGE SC SCH (22:30)
[2025-02-25 01:00] VITALS: BP 104/68; PULSE 89; RESP 18; TEMP 98.6; O2SAT 98
[2025-02-25 05:00] VITALS: BP 110/69; PULSE 90; RESP 18; TEMP 98.1; O2SAT 99
[2025-02-25 08:00] VITALS: PULSE 88
[2025-02-25 09:00] VITALS: BP 108/75; PULSE 83; RESP 18; TEMP 97.8; O2SAT 98
[2025-02-25] MEDS ORDERED: CEPH500C PO (10:25)
[2025-02-25] MEDS ORDERED: SPIR25TA PO (10:25)
[2025-02-25] MEDS ORDERED: TICA90TA PO (10:25)
[2025-02-25] MEDS ORDERED: EMPA1TAB PO (10:25)
[2025-02-25] MEDS ORDERED: APIX5TAB PO (10:25)
[2025-02-25] MEDS ORDERED: ATOR80TA PO (10:25)
[2025-02-25] MEDS ORDERED: FURO1TAB31 PO (10:25)
[2025-02-25] MEDS ORDERED: CARV-214 PO (10:25)
--- NOTE | 2025-02-25 10:30 | DVHDS2 ---
Discharge Summary Date of Admission Feb 23, 2025 at 15:24 Date of Discharge: Feb 25, 2025 Labs/Diagnostic Data: Laboratory Results Test 02/25/25 06:21 02/24/25 06:09 02/23/25 12:36 02/23/25 10:21 POC Glucose 114 mg/dl (70-106) Triglycerides Level 158 mg/dL (< 150) Cholesterol Level 179 mg/dL (< 200) LDL Cholesterol 121 mg/dL (< 100) HDL Cholesterol 40 mg/dL (40-59) Thyroid Stimulating Hormone (TSH) 2.59 uIU/mL (0.55-4.78) Troponin I High Sensitivity 272 ng/L (</=54) Urine Color Light-yellow (Yellow) Urine Clarity Clear (Clear) Urine pH 6.0 (5.0-9.0) Urine Specific [place] > 1.050 (1.001-1.035) Urine Protein Negative (Negative) Urine Ketones 1+ (Negative) Urine Blood Negative /uL (Negative) Urine Nitrite Negative (Negative) Urine Bilirubin Negative (Negative) Urine Urobilinogen Normal mg/dL (Negative) Urine Leukocyte Esterase Negative /uL (Negative) Urine RBC 1 /hpf (0 - 3) Urine Microscopic WBC 1 /HPF (0-3) Urine Squamous Epithelial Cells Few /hpf (<5) Urine Bacteria None seen /hpf (None Seen) Urine Mucus Few (None Seen) Urine Glucose Normal mg/dL (Normal) Test 02/23/25 08:41 White Blood Count 6.4 10^3/uL (4.4-10.8) Red Blood Count 3.52 10^6/uL (4.5-5.90) Hemoglobin 10.3 g/dL (13.5-17.5) Hematocrit 32.8 % (41.0-53.0) Mean Corpuscular Volume 93.2 fL (80.0-100.0) Mean Corpuscular Hemoglobin 29.2 pg (28.0-32.0) Mean Corpuscular Hemoglobin Concent 31.4 g/dL (32.0-36.0) Red Cell Distribution Width 17.7 % (11.8-14.3) Platelet Count 269 10^3/uL (140-450) Mean Platelet Volume 6.8 fL (6.9-10.8) Neutrophils (%) (Auto) 67.6 % (37.0-80.0) Lymphocytes (%) (Auto) 17.6 % (10.0-50.0) Monocytes (%) (Auto) 6.4 % (0.0-12.0) Eosinophils (%) (Auto) 7.6 % (0.0-7.0) Basophils (%) (Auto) 0.8 % (0.0-2.0) Neutrophils # (Auto) 4.3 10 ^3/uL (1.6-8.6) Lymphocytes # (Auto) 1.1 10 ^3/uL (0.4-5.4) Monocytes # (Auto) 0.4 10 ^3/uL (0-1.3) Eosinophils # (Auto) 0.5 10 ^3/uL (0-0.8) Basophils # (Auto) 0.1 10 ^3/uL (0-0.2) Nucleated Red Blood Cells 0.1 % D-Dimer, Quantitative 1.78 mg/L FEU (0.0-0.49) Sodium Level 142 mmol/L (136-145) Potassium Level 4.0 mmol/L (3.5-5.1) Chloride Level 109 mmol/L (98-107) Carbon Dioxide Level 22 mmol/L (20-31) Anion Gap 11 (5-15) Blood Urea Nitrogen 8 mg/dL (9-23) Creatinine 0.87 mg/dL (0.700-1.30) Glomerular Filtration Rate Calc 92 mL/min (>90) BUN/Creatinine Ratio 9.2 (10.0-20.0) Serum Glucose 114 mg/dL (74-106) Calcium Level 8.0 mg/dL (8.7-10.4) Other Laboratory Tests 02/23/25 08:41 Brief Hx & Hospital Course: Final diagnoses: Ischemic cardiomyopathy NSTEMI Coronary artery disease status post stents in the past on aspirin and Plavix Mid RCA thrombus Peripheral arterial disease Acute on chronic systolic heart failure with reduced ejection fraction Status post AICD Hypertension Dyslipidemia COPD Acute on chronic hypoxic respiratory failure Severe pulmonary hypertension Type 2 diabetes Active smoker Morbid obesity Thyroid disease Recent CVA 1 month ago status post feeding tube placement He was seen by Cardiology as recommended for him to continue Brilinta and Eliquis Vascular surgery saw the patient is recommended CTA of the lower extremities which showed severe peripheral vascular disease however no indication for immediate surgery per Dr. Flores He also has a G-tube which he had metabolic month ago after he had a stroke and he would like it to be removed however weakness also GI time because of the above medical problems including ischemic cardiomyopathy and recent stroke and recent myocardial infarction they recommended to wait and treated with the oral antibiotics for now and then get it done as an outpatient for the time being the patient is stable for discharge new line discharged home on Brilinta and Eliquis Cephalexin for infection for 10 days new line resume the other home medications Discontinued aspirin and Plavix Condition at Discharge: Stable Final Diagnosis/Problems List Ischemic cardiomyopathy NSTEMI Coronary artery disease status post stents in the past on aspirin and Plavix Mid RCA thrombus Peripheral arterial disease Acute on chronic systolic heart failure with reduced ejection fraction Status post AICD Hypertension Dyslipidemia COPD Acute on chronic hypoxic respiratory failure Severe pulmonary hypertension Type 2 diabetes Active smoker Morbid obesity Thyroid disease Recent CVA 1 month ago status post feeding tube placement Discharge Disposition: Home SNF Discharge Will this Physician continue t: No Discharge Instruct/Medications Diet: Consistent carbohydrate, Cardiac 2g Na,low cholest Activity: No Restrictions, As Tolerated Follow Up/Referral: PCP CAMILLA Medications: Stop aspirin and Plavix Eliquis 5 mg bid Brilinta 90 mg bid Keflex x 10 days Resume other home meds Scheduled Apixaban Base (Eliquis), 5 MG PO BID Aspirin (Aspir-Low), 81 MG PO DAILY, (Reported) Atorvastatin Calcium (Lipitor), 1 TAB PO DAILY Carvedilol (Coreg), 3.125 MG PO Q12HR Cephalexin Monohydrate (Cephalexin), 1 CAP PO TID Cholecalciferol (Vitamin D3), 1 CAP PO DAILY, (Reported) Clopidogrel Bisulfate (Plavix), 1 TAB PO DAILY, (Reported) Empagliflozin (Jardiance), 10 MG PO DAILY Furosemide (Lasix), 40 MG PO DAILY Insulin Glargine (Basaglar Kwikpen), UNITS SC UD, (Reported) Insulin Lispro (Insulin Lispro Kwikpen), 15 UNITS SC TIDWM, (Reported) Levothyroxine Sodium (Levothyroxine Sodium), 1 TAB PO QAM, (Reported) Spironolactone (Aldactone), 25 MG PO DAILY Tamsulosin Hcl (Tamsulosin Hcl), 1 CAP PO DAILY, (Reported) Ticagrelor Base (Brilinta), 90 MG PO BID Discharge Statement: "Patient was advised to return to the ER or call 911 if any headaches, dizziness, shortness of breath, chest pain, abdominal pain, bleeding, fevers, or worsening of medical condition. Patient was counseled about treatment plan, medications, possible side effects, patientverbalized understanding. All questions were answered to the best of my ability. This discharge took greater then 30 minutes in planning, reviewing documentation, counseling the patient, and discussing with other team members." ASSESSMENT ASSESSMENT Assessment Ischemic cardiomyopathy NSTEMI Coronary artery disease status post stents in the past on aspirin and Plavix Mid RCA thrombus Peripheral arterial disease Acute on chronic systolic heart failure with reduced ejection fraction Status post AICD Hypertension Dyslipidemia COPD Acute on chronic hypoxic respiratory failure Severe pulmonary hypertension Type 2 diabetes Active smoker Morbid obesity Thyroid disease Recent CVA 1 month ago status post feeding tube placement Date of Service: Feb 25, 2025 Billing Provider: KEILA AUSTIN MD Common Visit Codes: NOT BILLABLE KEILA AUSTIN MD Feb 25, 2025 10:30
[2025-02-25] MEDS: SPIRONOLACTONE 25 MG TAB PO SCH (10:58)
[2025-02-25] MEDS: COLCHICINE 0.6 MG CAP PO SCH (11:05)
--- NOTE | 2025-02-25 11:07 | DVHPN2 ---
Progress Note Date Seen: Feb 25, 2025 Resident Creating Document: LANE AJMISON RESIDENT Medical Necessity Reason Pt with a Central, PICC or Fol: No Subjective Review of Systems This is a 70-year-old male who was transferred from [facility] for evaluation of NSTEMI and right leg pain. Patient was seen in [place] on 02/22 for right leg pain for the past 3 days, reports that pain is sharp, located in the right feet, worsens with exertion or weight-bearing, constant, nonradiating, associated with numbness and tingling. Denies any thigh pain or posterior buttock pain which is radiating down. Also denies fever, chills, nausea, vomiting, lightheadedness, dizziness, chest pain, shortness of breaths, abdominal or urinary symptoms at this time. Also reports that his PEG tube is draining purulent substance for the past week, and abdomen is tender to touch. At [facility], patient's lactic acid was 2.9, BNP 8 8 7, troponin 0.14(normal value 0.02-0.04) Consulted for elevated troponin Past medical history: Congestive heart failure-unspecified, diabetes mellitus type 2, stroke 1 month back, hyperlipidemia, COPD, hypertension, hypothyroidism, dyslipidemia Past surgical history: G-tube placement, ICD placement, history of FANY Home medications: Aspirin 81, carvedilol 3.125, clopidogrel 75, furosemide 20, Lipitor, levothyroxine 25, insulin, metformin, Trelegy ipratropium albuterol Social history: Smokes 4 cigarettes a day, has been smoking a pack a day for the past 50 years, drinks socially, no drug use. Family in [place]. Lives in [place]. No next of kin. 02/23-Patient seen and examined. G-tube is draining purulent substance. Right lower extremity pulses are absent. 02/24-patient seen and examined, reports pain in right lower extremity on weight-bearing, tender to touch, bilateral feet are warm absent pulses 02/25-patient seen and examined, reports feeling the same, bilateral feet warm, no pulses felt, no open wounds or sores Objective vital signs Vital Sign Date Time Temp Pulse Resp B/P (MAP) Pulse Ox O2 Delivery O2 Flow Rate FiO2 02/25/25 09:00 97.8 83 18 108/75 (86) 98 97.8 02/24/25 22:30 Nasal Cannula* 3 32 Total Intake and Output 02/24/25 02/24/25 02/25/25 15:00 23:00 07:00 Intake Total 960 ml 400 ml Output Total 550 ml 550 ml Balance 410 ml -150 ml medications Current Medications Medications Dose Ordered Sig/Nelson Route Start Time Stop Time Status Last Admin Dose Admin Nitroglycerin 0.4 mg Q5MINP PRN SL 02/23/25 15:30 Hydromorphone HCl 0.25 mg Q4HPRN PRN IV 02/23/25 16:00 02/25/25 00:51 0.25 MG Ticagrelor 90 mg BID PO 02/24/25 10:00 02/25/25 10:59 90 MG Furosemide 40 mg DAILY PO 02/24/25 10:00 02/24/25 09:44 40 MG Atorvastatin Calcium 80 mg HS PO 02/23/25 22:00 02/24/25 22:29 80 MG Acetaminophen 650 mg Q6HP PRN PO 02/23/25 15:45 02/23/25 20:15 650 MG Ondansetron HCl 4 mg Q4HPRN PRN IV 02/23/25 15:45 Diagnostic Test (Pha) 1 strip ACHS 02/23/25 17:00 02/24/25 22:00 1 STRIP Insulin Human Regular ACHS SC 02/23/25 17:00 02/24/25 22:30 2 UNITS Dextrose 50 ml UD PRN IV 02/23/25 15:45 Empaglifozin 10 mg DAILY PO 02/24/25 18:00 02/25/25 10:58 10 MG Spironolactone 25 mg DAILY PO 02/25/25 10:00 02/25/25 10:58 25 MG Carvedilol 3.125 mg Q12HR PO 02/25/25 10:00 Colchicine 0.6 mg DAILY PO 02/25/25 10:00 Apixaban 5 mg BID PO 02/25/25 22:00 Examination Elderly male lying in the bed comfortably, no acute distress General: Well-built, afebrile, palor, mucosae are moist Cardiovascular: Regular S1 and S2. No murmurs, gallops or rubs. No JVD elevation. No pedal edema Respiratory: Decreased bilateral air entry, wheezing or crackles heard Abdomen: Soft, tender, G-tube draining purulent substance, nondistended, normoactive bowel sounds, no rebound tenderness, no organomegaly, no masses Genitourinary: Deferred MSK/skin: Mobilizes 4 limbs. Skin is dry and warm right lower extremity is colder compared to the left but intact sensation. Right lower extremity is also tender. Right dorsalis pedal pulse absent, right tibialis posterior pulse absent, left- sided pulses also feeble. Weak femoral pulses b/l Neurological: No motor, no sensitive deficits, normal speech. Pupils are isocoric and reactive. Psych/Mental Status: A/Ox3 laboratory and microbiology Laboratory Tests 02/23/25 08:41 Test 02/23/25 08:41 Range/Units Serum Glucose 114 H 74-106 mg/dL Labs and/or images reviewed: Labs reviewed by me, Image(s) reviewed by me Problem List/Assessment/Plan Problem List/Assessment/Plan Elevated troponin likely NSTEMI type 1 Occluded LAD Occluded circumflex RCA Thrombus CAD status post multiple PTCAs Severe bilateral Peripheral arterial disease Pulmonary Edema Chronic systolic CHF with AICD [place]-NYHA class 3 Seizure dilated ischemic cardiomyopathy Pulmonary hypertension, severe degree Anemia-normocytic History of stroke 1 month back Dyslipidemia Hypertension Diabetes Mellitus type 2-A1c unknown Hypothyroidism Tobacco dependence Lower extremity duplex shows There is peripheral vascular disease throughout the right lower extremity with monophasic waveform. No pulse was noted in the posterior or anterior tibial arteries. Pulse in the dorsalis pedis is measured at 11 cm/sec and was seen to be monophasic. There is no evidence for peripheral vascular insufficiency in the left lower extremity. ECHO 02/12/25 : The patient underwent a transthoracic echocardiogram which revealed an EF of 10%, RVSP 75-[address] angio shows Severe atherosclerotic calcification of the aortoiliac branches with near-complete occlusion of the proximal left external iliac artery. Severe multifocal stenoses of the arteries of the lower extremities. Plan/Recommendation Troponins have been downtrending from the previous visit 02/12 [id number], g charissa the recent [facility] and overall poor prognosis, no acute cardiology intervention indicated for elevated troponins. Follow up with vascular surgeon for PAD Patient underwent coronary angiogram with left heart catheterization on 02/12/2025 which revealed an occluded LAD, occluded circumflex, filling defect in mid RCA with thrombus. Patient was advised Brilinta and DOAC (Eliquis), and to initiate colchicine patient left AMA. Overall prognosis is poor. Continue Lovenox 1 milligram/kg b.i.d. for now, switched to Eliquis 2.5 mg b.i.d. on discharge Continue atorvastatin 80 mg HS daily Started Coreg 3.125 b.i.d., Continue Jardiance 10 mg daily, spironolactone 25 mg daily, hold off on Entresto, start Entresto and beta sd as the blood pressure permits Strict I&Os, daily weights, maintain fluid restriction, low-sodium diet Nicotine patch daily Thank you for consulting us. Plan discussed with patient in which all questions have been answered Case discussed with Dr. Fleming Plan discussed with: Patient My Orders My Orders Orders - LANE JAMISON Procedure Category Date Status Time Empagliflozin PHA 02/24/25 In Process (Jardiance) 18:00 Spironolactone PHA 02/25/25 In Process (Aldactone) 10:00 Basic Metabolic Panel LAB 02/25/25 Logged 09:08 Carvedilol Tablet PHA 02/25/25 In Process (Coreg Tablet) 10:00 Colchicine (Colcrys) PHA 02/25/25 In Process 10:[address] [facility] Feb 25, 2025 11:07
[2025-02-25] MEDS: CARVEDILOL 3.125 MG TAB PO SCH (11:10)
[2025-02-25] MEDS: APIXABAN 5 MG TAB PO ONE (11:11)
--- NOTE | 2025-02-25 11:25 | ECG ---
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
[2025-02-25 14:32] VITALS: BP 115/74; PULSE 85; RESP 18; TEMP 98; O2SAT 98
--- NOTE | 2025-02-25 21:38 | ECG ---
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
[2025-02-25] MEDS ORDERED: APIXABAN 5 MG TAB PO SCH (22:00)
--- NOTE | 2025-02-25 22:11 | DVHPN2 ---
Progress Note - Dictate Date Seen: Feb 25, 2025 (Late entry Patient seen at 2:00 p.m.) Medical Necessity Reason Pt with a Central, PICC or Fol: No Subjective No new complaints Patient denies any nausea vomiting or abdominal pain Patient is tolerating oral diet Patient recently underwent a cardiac catheterization with stent placement and he is on anticoagulation vital signs Vital Sign Date Time Temp Pulse Resp B/P (MAP) Pulse Ox O2 Delivery O2 Flow Rate FiO2 02/25/25 14:32 98.0 85 18 115/74 (88) 98 98.0 02/25/25 08:00 Nasal Cannula* 3 32 Total Intake and Output 02/24/25 02/24/25 02/25/25 15:00 23:00 07:00 Intake Total 960 ml 400 ml Output Total 550 ml 550 ml Balance 410 ml -150 ml objective General: NAD, AAOX3 Chest: lung goodrich clear to auscultation Heart: RRR, no murmur Abdomen: non-distended, no tenderness to palpation, +BS, PEG tube in place laboratory and microbiology Laboratory Tests 02/23/25 08:41 Test 02/23/25 08:41 Range/Units Serum Glucose 114 H 74-106 mg/dL Problems(with codes): (1) Malfunction of percutaneous endoscopic gastrostomy (PEG) tube (2) NSTEMI (non-ST elevated myocardial infarction) (3) Acute chest pain (4) Right leg pain Prognosis Plan Patient was advised to continue local G-tube care He was treated with antibiotics Since the patient had a recent cardiac stent is on anticoagulation and recent MT I suggested to defer his endoscopy Patient can follow up with GI Services as an outpatient to do elective endoscopy with removal of PEG tube in the next 6-8 weeks Patient will follow up with PCP to arrange a referral Discharge planning is in progress Plan discussed with: Patient, Other (Dr Persaud) ALLISON GOLDMAN MD Feb 25, 2025 22:11
== END 2025-02-25 14:30 | disposition home or self-care (01) | DRG 280 ==
LOC: ER 07:46 → OVERFLOW 15:24 → TELE-WESTW 22:18
PROVIDERS: ADMIT Internal Medicine Geriatric Medicine; ATTEND Internal Medicine Geriatric Medicine
DX: I21.4 Non-ST elevation (NSTEMI) myocardial infarction (principal); I50.23 Acute on chronic systolic (congestive) heart failure; J96.21 Acute and chronic respiratory failure with hypoxia; I27.20 Pulmonary hypertension, unspecified; I25.5 Ischemic cardiomyopathy; E03.9 Hypothyroidism, unspecified; E11.51 Type 2 diabetes mellitus with diabetic peripheral angiopathy without gangrene; E78.5 Hyperlipidemia, unspecified; F17.210 Nicotine dependence, cigarettes, uncomplicated; J44.9 Chronic obstructive pulmonary disease, unspecified; I11.0 Hypertensive heart disease with heart failure; I25.10 Atherosclerotic heart disease of native coronary artery without angina pectoris; E66.01 Morbid (severe) obesity due to excess calories; Z68.26 Body mass index [BMI] 26.0-26.9, adult; I25.2 Old myocardial infarction; Z79.01 Long term (current) use of anticoagulants; Z79.4 Long term (current) use of insulin; Z86.73 Personal history of transient ischemic attack (TIA), and cerebral infarction without residual deficits; Z93.1 Gastrostomy status; Z95.5 Presence of coronary angioplasty implant and graft; Z95.810 Presence of automatic (implantable) cardiac defibrillator
CPT/HCPCS: 36415; 71045; 75635; 80048; 80061; 81001; 82962; 84443; 84484; 85025; 85379; 93005; 93926; 93971; 96374; 96375; 99291; G0378; J1815; J2405